=== PATIENT | male | born 1965 | race Caucasian/White ===

== ENCOUNTER 2017-07-16 15:12 | Inpatient (IN) | payer OTHER ==
[2017-07-16 17:35] VITALS: BMI 22.5
--- NOTE | 2017-07-16 19:27 | HP ---
CIWA Score - CIWA Score Nausea/Vomitin-Mild Nausea/No Vomiting Muscle Tremors: 4-Moderate,w/Arms Extend Anxiety: 4-Mod. Anxious/Guarded Agitation: 4-Moderately Restless Paroxysmal Sweats: 1-Minimal Palms Moist Orientation: 0-Oriented Tacttile Disturbances: 0-None Auditory Disturbances: 0-None Visual Disturbances: 0-None Headache: 1-Very Mild CIWA-Ar Total Score: 15 Admission ROS BHS - HPI Chief Complaint: WITHDRAWAL SX Allergies/Adverse Reactions: Allergies Allergy/AdvReac Type Severity Reaction Status Date / Time peas Allergy Severe Swelling Verified 07/16/17 19:13 NKDA Allergy Uncoded 07/16/17 19:13 History of Present Illness: 51 YEARS OLD MALE WITH LONG HISTORY OF ALCOHOL, XANAX, MARIJUANA, COCAINE NICOTINE DEPENDENCE DENIES MEDICAL ISSUE HAS BIPOLAR II IS ADMITTED TO DETOX Exam Limitations: No Limitations - Ebola screening Have you traveled outside of the country in the last 21 days: No Have you had contact with anyone from an Ebola affected area: No Have you been sick,other than usual withdrawal symptoms: No Do you have a fever: No - Review of Systems Constitutional: Loss of Appetite, Changes in sleep, Unintentional Wgt. Loss, Unexplained wgt Loss EENT: reports: Blurred Vision (EYE GLASSES) Respiratory: reports: No Symptoms reported Cardiac: reports: No Symptoms Reported GI: reports: Nausea, Poor Appetite, Poor Fluid Intake, Abdominal cramping : reports: No Symptoms Reported Musculoskeletal: reports: Back Pain, Joint Pain, Muscle Pain, Neck Pain Integumentary: reports: Change in Color (BOTH INNER ELBOW IV HEROIN) Neuro: reports: Tremors Endocrine: reports: No Symptoms Reported Hematology: reports: No Symptoms Reported Psychiatric: reports: Judgement Intact, Orientated x3, Anxious, Depressed Other Systems: Reviewed and Negative Patient History - Patient Medical History Hx Anemia: No Hx Asthma: No Hx Chronic Obstructive Pulmonary Disease (COPD): No Hx Cancer: No Hx Cardiac Disorders: No Hx Congestive Heart Failure: No Hx Hypertension: No Hx Hypercholesterolemia: No Hx Pacemaker: No HX Cerebrovascular Accident: No Hx Seizures: No Hx Dementia: No Hx Diabetes: No Hx Gastrointestinal Disorders: No Hx Liver Disease: No Hx Genitourinary Disorders: No Hx Sexually Transmitted Disorders: No Hx Renal Disease (ESRD): No Hx Thyroid Disease: No Hx Human Immunodeficiency Virus (HIV): No Hx Hepatitis C: Yes Hx Depression: No Hx Suicide Attempt: Yes (OVERDOSE 2013) Hx Bipolar Disorder: Yes Hx Schizophrenia: No - Patient Surgical History Past Surgical History: Yes Hx Neurologic Surgery: No Hx Cataract Extraction: No Hx Cardiac Surgery: No Hx Lung Surgery: No Hx Breast Surgery: No Hx Breast Biopsy: No Hx Abdominal Surgery: No Hx Appendectomy: No Hx Cholecystectomy: No Hx Genitourinary Surgery: No Hx Orthopedic Surgery: No Other Surgical History: LEFT HERNIA 2003 Anesthesia Reaction: No - PPD History Previous Implant?: Yes Documented Results: Negative w/o proof Implanted On Prior [facility] Admission?: No PPD to be Administered?: Yes - Smoking Cessation Smoking history: Current every day smoker Have you smoked in the past 12 months: Yes Aproximately how many cigarettes per day: 3 Cigars Per Day: 0 Hx Chewing Tobacco Use: No Initiated information on smoking cessation: Yes 'Breaking Loose' booklet given: 07/16/17 - Substance & Tx. History Hx Alcohol Use: Yes Hx Substance Use: Yes Substance Use Type: Alcohol, Cocaine, Marijuana, Tranquilizers Hx Substance Use Treatment: Yes (06/2017 [facility]) - Substances Abused Alcohol Route: Oral Frequency: Daily Amount used: 1 1/2 PINT Family Disease History - Family Disease History Family Disease History: Diabetes: Father, CA: Sister, Respiratory: Sister, Other : Father Admission Physical Exam BHS - Vital Signs Vital Signs: Vital Signs - 24 hr 07/16/17 17:31 Temperature 97.1 F L Pulse Rate 59 L Respiratory 20 Rate Blood Pressure 134/89 - Physical General Appearance: Yes: Appropriately Dressed, Mild Distress, Thin, Tremorous, Irritable, Sweating, Anxious HEENTM: Yes: Hearing grossly Normal, Normal ENT Inspection, Normocephalic, Normal Voice Respiratory: Yes: Chest Non-Tender, Lungs Clear, Normal Breath Sounds, No Respiratory Distress, No Accessory Muscle Use Neck: Yes: Supple, Trachea in good position Breast: Yes: Breasts Symetrical Cardiology: Yes: Regular Rhythm, S1, S2, Bradycardia Abdominal: Yes: Non Tender, Soft Genitourinary: Yes: Within Normal Limits Back: Yes: Normal Inspection Musculoskeletal: Yes: full range of Motion, Gait Steady, Back pain, Muscle Pain Extremities: Yes: Normal Inspection, Normal Range of Motion, Non-Tender, Tremors Neurological: Yes: Fully Oriented, Alert, Motor Strength 5/5, Normal Response, Depressed Affect Integumentary: Yes: Warm, Track [place] Lymphatic: Yes: Within Normal Limits - Diagnostic (1) Alcohol dependence with uncomplicated withdrawal Current Visit: Yes Status: Acute (2) Cocaine dependence, uncomplicated Current Visit: Yes Status: Chronic (3) Cannabis dependence, uncomplicated Current Visit: Yes Status: Chronic (4) Methadone maintenance therapy patient Current Visit: Yes Status: Chronic Comment: 160 MG VERIFICAITON PENDING (5) Nicotine dependence Current Visit: Yes Status: Acute Qualifiers: Nicotine product type: cigarettes Substance use status: in withdrawal Qualified Code(s): F17.213 - Nicotine dependence, cigarettes, with withdrawal; F17.213 - Nicotine dependence, cigarettes, with withdrawal (6) Weight loss Current Visit: Yes Status: Acute (7) Hepatitis C Current Visit: Yes Status: Chronic Qualifiers: Viral hepatitis chronicity: chronic Hepatic coma status: without hepatic coma Qualified Code(s): B18.2 - Chronic viral hepatitis C; B18.2 - Chronic viral hepatitis C; B18.2 - Chronic viral hepatitis C; B18.2 - Chronic viral hepatitis C (8) Bipolar II disorder Current Visit: Yes Status: Suspected Cleared for Admission S - Detox or Rehab [facility] Level of Care: Medically Managed Detox Regimen/Protocol: Valium S Breath Alcohol Content Breath Alcohol Content: 0 Urine Drug Screen - Results Drug Screen Negative: No Urine Drug Screen Results: THC-Marijuana, ARMANI-Cocaine, OPI-Opiates, BZO- Benzodiazepines, MTD-Methadone, TCA-Tricyclic Antidepress
[2017-07-16] MEDS ORDERED: MAGNESIUM HYDROX 2400MG/30ML ORAL SUSPENSION 30 ML CUP PO PRN (19:31)
[2017-07-16] MEDS ORDERED: MAG HYDROX/AL HYDROX/SIMETH 30 ML UNIT-DOSE CUP PO PRN (19:31)
[2017-07-16] MEDS ORDERED: ACETAMINOPHEN 325 MG TABLET (FP) PO PRN (19:31)
[2017-07-16] MEDS ORDERED: IBUPROFEN 400 MG TABLET (FP) PO PRN (19:31)
[2017-07-16] MEDS ORDERED: NICOTINE POLACRILEX 2 MG GUM BC PRN (19:31)
[2017-07-16] MEDS ORDERED: P-EPHED 60MG/TRIPROLIDI 2.5MG TABLET PO PRN (19:31)
[2017-07-16] MEDS ORDERED: MAGNESIUM CITRATE 300 ML BOTTLE PO PRN (19:31)
[2017-07-16] MEDS ORDERED: diazePAM 5 MG TABLET PO ONE (19:31)
[2017-07-16] MEDS ORDERED: LOPERAMIDE HCL 2 MG CAPSULE PO PRN (19:31)
[2017-07-16] MEDS ORDERED: diphenhydrAMINE HCL 50 MG CAPSULE PO PRN (19:31)
[2017-07-16] MEDS ORDERED: MENTHOL/PHENOL 1 EACH UD MM PRN (19:31)
[2017-07-16] MEDS ORDERED: guaiFENesin/D-METHORPHAN HB 10 ML UNIT-DOSE CUPS PO PRN (19:31)
[2017-07-16] MEDS: THIAMINE HCL 100 MG TABLET (FP) PO SCH (22:38)
[2017-07-16] MEDS: diazePAM 5 MG TABLET PO SCH (22:42)
[2017-07-16 23:21] LABS: URINE APPEARANCE SLCLOUDY; URINE BILIRUBIN NEGATIVE (NEGATIVE); URINE BLOOD NEGATIVE (NEGATIVE); URINE COLOR YELLOW; URINE GLUCOSE (UA) NEGATIVE (NEGATIVE); URINE KETONE NEGATIVE (NEGATIVE); URINE LEUK ESTERASE TRACE (NEGATIVE); URINE NITRITE NEGATIVE (NEGATIVE); URINE PROTEIN NEGATIVE (NEGATIVE)
[2017-07-16 23:30] LABS: URINE HYALINE CAST 9 /lpf; URINE MUCUS MANY; URINE RBC 6 /hpf (0-3); URINE WBC 4 /hpf (3-5)
[2017-07-17] MEDS: diazePAM 5 MG TABLET PO SCH ×3 (06:04→22:47)
[2017-07-17] MEDS: diazePAM 5 MG TABLET PO PRN ×2 (09:30→17:55)
[2017-07-17 09:43] LABS: MCH 31.8 pg (25.7-33.7); MCHC 33.3 g/dl (32.0-35.9); MEAN CELL VOLUME 95.6 fl (80-96); MEAN PLT VOLUME 9.9 fl (7.5-11.1); PLATELET COUNT 101 K/MM3 (134-434); WHITE BLOOD COUNT 4.7 K/mm3 (4.0-10.0)
--- NOTE | 2017-07-17 09:58 | EKG ---
Test Reason : Blood Pressure : / mmHG Vent. Rate : 051 BPM Atrial Rate : 051 BPM P-R Int : 166 ms QRS Dur : 108 ms QT Int : 498 ms P-R-T Axes : 054 -62 033 degrees QTc Int : 458 ms SINUS BRADYCARDIA INCOMPLETE RIGHT BUNDLE BRANCH BLOCK LEFT ANTERIOR FASCICULAR BLOCK BIFASCICULAR BLOCK ABNORMAL ECG NO PREVIOUS ECGS AVAILABLE Confirmed by CLEMENTINA STORY, MECHELLE ([id number]) on 07/17/2017 9:57:51 AM Referred By: Confirmed By:MECHELLE MCRAE MD
--- NOTE | 2017-07-17 09:58 | EKG ---
Test Reason : Blood Pressure : / mmHG Vent. Rate : 047 BPM Atrial Rate : 047 BPM P-R Int : 164 ms QRS Dur : 104 ms QT Int : 506 ms P-R-T Axes : 047 -54 020 degrees QTc Int : 447 ms SINUS BRADYCARDIA INCOMPLETE RIGHT BUNDLE BRANCH BLOCK LEFT ANTERIOR FASCICULAR BLOCK ABNORMAL ECG WHEN COMPARED WITH ECG OF 16-JUL-2017 22:32, NO SIGNIFICANT CHANGE WAS FOUND Confirmed by MECHELLE MCRAE MD ([id number]) on 07/17/2017 9:58:25 AM Referred By: Confirmed By:MECHELLE MCRAE MD
[2017-07-17 10:29] LABS: ALBUMIN 3.4 g/dl (3.4-5.0); ALK PHOS 97 U/L (45-117); ANION GAP 5 (8-16); BILIRUBIN,TOTAL 1.3 mg/dL (0.2-1.0); CO2 33 mmol/L (21-32); CREATININE 0.7 mg/dL (0.7-1.3); GLUCOSE,RANDOM 76 mg/dL (74-106); SGOT/AST 68 U/L (15-37); SGPT/ALT 79 U/L (12-78); TOT PROT 6.2 g/dl (6.4-8.2)
[2017-07-17] MEDS: PRENATAL VITAMINS W/ FOLIC ACID TABLET (FP) PO SCH (10:40)
[2017-07-17] MEDS: METHADONE HCL 40 MG DISPERSABLE TABLET PO SCH (10:41)
[2017-07-17] MEDS: NICOTINE 14 MG/24 HOURS TOPICAL PATCH TD SCH (10:41)
[2017-07-17 11:42] LABS: HIV 1 & 2 AB NEGATIVE; HIV 1 AGp24 NEGATIVE
--- NOTE | 2017-07-17 12:28 | CONSULT ---
[facility] Psychiatric Consult - Data Date of interview: 07/17/17 Admission source: Self-referred Identifying data: Mr Desean Quintero is a 51 years old male, father of a 32 years old son, unemployed on SSI, domiciled Substance Abuse History: Reports history of alcohol, heroin and cocaine use. consumes 1.5 pint of liquor, 1-2 bags of heroin and $70 worth of cocaine daily Medical History: Significant for Hep C and history of surgery for left inguinal hernia repair. Patient is on methadone 160 mg/day. Smokes 3 cigarettes daily Psychiatric History: Reports being diagnosed with Bipolar/Schizoprenia and has had 3 previous psychiatric admissions. First admission was in 2011 in [place], [place], second in [place] and third one in 2015 in [facility]. Claims that he was discharged on Zoloft, Seroquel and Anbien. Reports receiving OPD care at [facility] in the [place] and he is currently prescribed Zoloft 100 mg po daily, Seroquel 100 mg po HS, Trazadone 50 mg po HS and Ambien 10 mg po HS. Reports history of one suicidal attempt by overdose in 2013. at present, reports feeling depressed, anxious and sleeping poorly Physical/Sexual Abuse/Trauma History: Denies history of verbal, physical or sexual abuse as well as DV relationship. No service Additional Comment: Denies Mental Status Exam - Mental Status Exam Alert and Oriented to: Time, Place, Person Cognitive Function: Fair Patient Appearance: Well Groomed Mood: Depressed, Anxious Affect: Appropriate Speech Pattern: Clear Voice Loudness: Normal Thought Process: Intact, Goal Oriented Insight/Judgement: Poor Sleep: Poorly Appetite: Poor Muscle strength/Tone: Normal Gait/Station: Normal Psychiatric Findings - Problem List ([place] 1, 2,3) (1) Bipolar II disorder Current Visit: Yes Status: Suspected (2) Substance induced mood disorder Current Visit: Yes Status: Acute (3) Substance-induced sleep disorder Current Visit: Yes Status: Acute (4) Alcohol dependence with uncomplicated withdrawal Current Visit: Yes Status: Acute (5) Cocaine dependence, uncomplicated Current Visit: Yes Status: Chronic (6) Sedative hypnotic or anxiolytic dependence Current Visit: Yes Status: Acute (7) Opioid dependence on agonist therapy Current Visit: Yes Status: Acute (8) Nicotine dependence Current Visit: Yes Status: Acute Qualifiers: Nicotine product type: cigarettes Substance use status: in withdrawal Qualified Code(s): F17.213 - Nicotine dependence, cigarettes, with withdrawal; F17.213 - Nicotine dependence, cigarettes, with withdrawal (9) Hepatitis C Current Visit: Yes Status: Chronic Qualifiers: Viral hepatitis chronicity: chronic Hepatic coma status: without hepatic coma Qualified Code(s): B18.2 - Chronic viral hepatitis C; B18.2 - Chronic viral hepatitis C; B18.2 - Chronic viral hepatitis C; B18.2 - Chronic viral hepatitis C - Initial Treatment Plan Initial Treatment Plan: 1) Continue zoloft 100 mg po daily, Seroquel 100 mg po HS and Ambien 10 mg po HS prn for insomnia. 2) Continue inpatient detoxification
--- NOTE | 2017-07-17 12:32 | PN ---
[facility] CIWA - CIWA Score Nausea/Vomitin Muscle Tremors: 4-Moderate,w/Arms Extend Anxiety: 3 Agitation: 1-Slight > Activity Paroxysmal Sweats: 3 Orientation: 0-Oriented Tacttile Disturbances: 1-Very Mild Itch/Numbness Auditory Disturbances: 2-Mild Harshness/Frighten Visual Disturbances: 1-Very Mild Sensitivity Headache: 0-None Present CIWA-Ar Total Score: 17 BHS Progress Note (SOAP) Subjective: Body Aches, Sweating, Tremors, Interrupted Sleep, Diarrhea. Objective: PT. A & O X 3. NO ACUTE DISTRESS. PT. DENIES CHEST PAIN. 07/17/17 12:29 Vital Signs Temperature 97 F L 07/17/17 09:25 Pulse Rate 55 L 07/17/17 09:25 Respiratory Rate 18 07/17/17 09:25 Blood Pressure 127/87 07/17/17 09:25 O2 Sat by Pulse Oximetry (%) Laboratory Tests 07/16/17 07/17/17 07/17/17 23:10 08:00 08:00 WBC 4.7 RBC 3.96 L Hgb 12.6 Hct 37.8 MCV 95.6 MCH 31.8 MCHC 33.3 RDW 13.0 Plt Count 101 L MPV 9.9 Sodium 141 Potassium 4.1 Chloride 103 Carbon Dioxide 33 H Anion Gap 5 L BUN 15 Creatinine 0.7 Creat Clearance w eGFR > 60 Random Glucose 76 Calcium 8.0 L Total Bilirubin 1.3 H AST 68 H ALT 79 H Alkaline Phosphatase 97 Total Protein 6.2 L Albumin 3.4 Urine Color Yellow Urine Appearance Slcloudy Urine pH 5.0 Ur Specific [place] 1.025 Urine Protein Negative Urine Glucose (UA) Negative Urine Ketones Negative Urine Blood Negative Urine Nitrite Negative Urine Bilirubin Negative Urine Urobilinogen 2.0 Urine RBC 6 Urine WBC 4 Ur Epithelial Cells Rare Hyaline Casts 9 Urine Mucus Many RPR Titer HIV 1&2 Antibody Screen HIV P24 Antigen 07/17/17 07/17/17 08:00 08:00 WBC RBC Hgb Hct MCV MCH MCHC RDW Plt Count MPV Sodium Potassium Chloride Carbon Dioxide Anion Gap BUN Creatinine Creat Clearance w eGFR Random Glucose Calcium Total Bilirubin AST ALT Alkaline Phosphatase Total Protein Albumin Urine Color Urine Appearance Urine pH Ur Specific [place] Urine Protein Urine Glucose (UA) Urine Ketones Urine Blood Urine Nitrite Urine Bilirubin Urine Urobilinogen Urine RBC Urine WBC Ur Epithelial Cells Hyaline Casts Urine Mucus RPR Titer Nonreactive HIV 1&2 Antibody Screen Negative HIV P24 Antigen Negative LABS NOTED. Assessment: 07/17/17 12:30 WITHDRAWAL SYMPTOMS. Plan: CONTINUE DETOX. REPEAT UA FOR ELEVATED ADMISSION UA BLOOD VALUE. INCREASE DAILY PO FLUID INTAKE.
[2017-07-17] MEDS: SERTRALINE HCL 50 MG TABLET (FP) PO SCH (14:17)
[2017-07-17] MEDS ORDERED: ZOLPIDEM TARTRATE 10 MG TABLET (PARK CARE ONLY) PO PRN (22:00)
[2017-07-17] MEDS: THIAMINE HCL 100 MG TABLET (FP) PO SCH (22:47)
[2017-07-17] MEDS: QUEtiapine FUMARATE 100 MG TABLET (FP) PO SCH (22:48)
[2017-07-18] MEDS: CYCLOBENZAPRINE HCL 10 MG TABLET (FP) PO PRN (05:53)
[2017-07-18] MEDS: diazePAM 5 MG TABLET PO PRN ×2 (05:53→20:14)
[2017-07-18] MEDS: METHADONE HCL 40 MG DISPERSABLE TABLET PO SCH (05:53)
[2017-07-18] MEDS: PRENATAL VITAMINS W/ FOLIC ACID TABLET (FP) PO SCH (10:57)
[2017-07-18] MEDS: SERTRALINE HCL 50 MG TABLET (FP) PO SCH (10:57)
[2017-07-18] MEDS: diazePAM 5 MG TABLET PO SCH ×2 (10:58→22:48)
[2017-07-18] MEDS: NICOTINE 14 MG/24 HOURS TOPICAL PATCH TD SCH (10:58)
--- NOTE | 2017-07-18 13:34 | PN ---
S CIWA - CIWA Score Nausea/Vomitin Muscle Tremors: 3 Anxiety: 1-Mildly Anxious Agitation: 2 Paroxysmal Sweats: 3 Orientation: 2-Disoriented Date<2 days Tacttile Disturbances: 0-None Auditory Disturbances: 0-None Visual Disturbances: 0-None Headache: 3-Moderate CIWA-Ar Total Score: 19 S Progress Note (SOAP) Subjective: Interrupted sleep, Tremors, diarrhea, Vomiting, H/A, Body Aches, Sweating. Objective: PT. A & O X 2 (DISORIENTED ABOUT DAY / DATE). NO ACUTES DISTRESS. 07/18/17 13:35 Vital Signs Temperature 97.6 F 07/18/17 09:48 Pulse Rate 87 07/18/17 09:48 Respiratory Rate 18 07/18/17 09:48 Blood Pressure 115/71 07/18/17 09:48 O2 Sat by Pulse Oximetry (%) Laboratory Tests 07/16/17 07/17/17 07/17/17 23:10 08:00 08:00 WBC 4.7 RBC 3.96 L Hgb 12.6 Hct 37.8 MCV 95.6 MCH 31.8 MCHC 33.3 RDW 13.0 Plt Count 101 L MPV 9.9 Sodium 141 Potassium 4.1 Chloride 103 Carbon Dioxide 33 H Anion Gap 5 L BUN 15 Creatinine 0.7 Creat Clearance w eGFR > 60 Random Glucose 76 Calcium 8.0 L Total Bilirubin 1.3 H AST 68 H ALT 79 H Alkaline Phosphatase 97 Total Protein 6.2 L Albumin 3.4 Urine Color Yellow Urine Appearance Slcloudy Urine pH 5.0 Ur Specific [place] 1.025 Urine Protein Negative Urine Glucose (UA) Negative Urine Ketones Negative Urine Blood Negative Urine Nitrite Negative Urine Bilirubin Negative Urine Urobilinogen 2.0 Urine RBC 6 Urine WBC 4 Ur Epithelial Cells Rare Hyaline Casts 9 Urine Mucus Many RPR Titer HIV 1&2 Antibody Screen HIV P24 Antigen 07/17/17 07/17/17 08:00 08:00 WBC RBC Hgb Hct MCV MCH MCHC RDW Plt Count MPV Sodium Potassium Chloride Carbon Dioxide Anion Gap BUN Creatinine Creat Clearance w eGFR Random Glucose Calcium Total Bilirubin AST ALT Alkaline Phosphatase Total Protein Albumin Urine Color Urine Appearance Urine pH Ur Specific [place] Urine Protein Urine Glucose (UA) Urine Ketones Urine Blood Urine Nitrite Urine Bilirubin Urine Urobilinogen Urine RBC Urine WBC Ur Epithelial Cells Hyaline Casts Urine Mucus RPR Titer Nonreactive HIV 1&2 Antibody Screen Negative HIV P24 Antigen Negative LABS NOTED. Assessment: 07/18/17 13:36 WITHDRAWAL SYMPTOMS. Plan: CONTINUE DETOX. INCREASE DAILY PO FLUID INTAKE.
[2017-07-18] MEDS: THIAMINE HCL 100 MG TABLET (FP) PO SCH (22:47)
[2017-07-18] MEDS: QUEtiapine FUMARATE 100 MG TABLET (FP) PO SCH (22:48)
[2017-07-19] MEDS: METHADONE HCL 40 MG DISPERSABLE TABLET PO SCH (05:59)
[2017-07-19] MEDS: CYCLOBENZAPRINE HCL 10 MG TABLET (FP) PO PRN (05:59)
[2017-07-19] MEDS: diazePAM 5 MG TABLET PO PRN ×3 (06:00→17:03)
[2017-07-19 10:21] LABS: URINE APPEARANCE CLOUDY; URINE BILIRUBIN NEGATIVE (NEGATIVE); URINE BLOOD NEGATIVE (NEGATIVE); URINE COLOR DKYELLOW; URINE GLUCOSE (UA) NEGATIVE (NEGATIVE); URINE KETONE NEGATIVE (NEGATIVE); URINE LEUK ESTERASE TRACE (NEGATIVE); URINE NITRITE NEGATIVE (NEGATIVE); URINE PROTEIN NEGATIVE (NEGATIVE); URINE UROBILINOGEN 4.0 E.U/dl mg/dL (0.2-1.0)
[2017-07-19] MEDS: PRENATAL VITAMINS W/ FOLIC ACID TABLET (FP) PO SCH (10:37)
[2017-07-19] MEDS: SERTRALINE HCL 50 MG TABLET (FP) PO SCH (10:37)
[2017-07-19] MEDS: diazePAM 5 MG TABLET PO SCH ×2 (10:37→22:38)
[2017-07-19] MEDS: NICOTINE 14 MG/24 HOURS TOPICAL PATCH TD SCH (10:38)
[2017-07-19 10:59] LABS: CALCIUM OXALATE CRYSTALS FEW /hpf (NONE SEEN); URINE HYALINE CAST 6 /lpf; URINE MUCUS FEW; URINE RBC 14 /hpf (0-3); URINE WBC 9 /hpf (3-5)
--- NOTE | 2017-07-19 14:23 | PN ---
BHS Progress Note (SOAP) Subjective: Body Aches, Sweating, H/A, Diarrhea, Tremors, Interrupted Sleep. Objective: PT. A & O X 2 (DISORIENTED ABOUT DAY / DATE). PT. OBSERVED AMBULATING ON UNIT. NO ACUTE DISTRESS. 07/19/17 14:19 Vital Signs Temperature 96.2 F L 07/19/17 13:15 Pulse Rate 67 07/19/17 13:15 Respiratory Rate 18 07/19/17 13:15 Blood Pressure 113/79 07/19/17 13:15 O2 Sat by Pulse Oximetry (%) Laboratory Tests 07/16/17 07/17/17 07/17/17 23:10 08:00 08:00 WBC 4.7 RBC 3.96 L Hgb 12.6 Hct 37.8 MCV 95.6 MCH 31.8 MCHC 33.3 RDW 13.0 Plt Count 101 L MPV 9.9 Sodium 141 Potassium 4.1 Chloride 103 Carbon Dioxide 33 H Anion Gap 5 L BUN 15 Creatinine 0.7 Creat Clearance w eGFR > 60 Random Glucose 76 Calcium 8.0 L Total Bilirubin 1.3 H AST 68 H ALT 79 H Alkaline Phosphatase 97 Total Protein 6.2 L Albumin 3.4 Urine Color Yellow Urine Appearance Slcloudy Urine pH 5.0 Ur Specific [place] 1.025 Urine Protein Negative Urine Glucose (UA) Negative Urine Ketones Negative Urine Blood Negative Urine Nitrite Negative Urine Bilirubin Negative Urine Urobilinogen 2.0 Urine RBC 6 Urine WBC 4 Ur Epithelial Cells Rare Calcium Oxalate Crystal Hyaline Casts 9 Urine Mucus Many RPR Titer HIV 1&2 Antibody Screen HIV P24 Antigen 07/17/17 07/17/17 07/19/17 08:00 08:00 08:00 WBC RBC Hgb Hct MCV MCH MCHC RDW Plt Count MPV Sodium Potassium Chloride Carbon Dioxide Anion Gap BUN Creatinine Creat Clearance w eGFR Random Glucose Calcium Total Bilirubin AST ALT Alkaline Phosphatase Total Protein Albumin Urine Color Dkyellow Urine Appearance Cloudy Urine pH 6.0 Ur Specific [place] Urine Protein Negative Urine Glucose (UA) Negative Urine Ketones Negative Urine Blood Negative Urine Nitrite Negative Urine Bilirubin Negative Urine Urobilinogen 4.0 e.u/dl Urine RBC 14 Urine WBC 9 Ur Epithelial Cells Calcium Oxalate Crystal Few Hyaline Casts 6 Urine Mucus Few RPR Titer Nonreactive HIV 1&2 Antibody Screen Negative HIV P24 Antigen Negative LABS NOTED. RESULTS OF REPEAT UA NOTED. 07/19/17 14:23 Assessment: 07/19/17 14:20 WITHDRAWAL SYMPTOMS. Plan: CONTINUE DETOX. INCREASE DAILY PO FLUID INTAKE.
[2017-07-19] MEDS: QUEtiapine FUMARATE 100 MG TABLET (FP) PO SCH (22:38)
[2017-07-19] MEDS: THIAMINE HCL 100 MG TABLET (FP) PO SCH (22:38)
[2017-07-20] MEDS: CYCLOBENZAPRINE HCL 10 MG TABLET (FP) PO PRN (05:57)
[2017-07-20] MEDS: METHADONE HCL 40 MG DISPERSABLE TABLET PO SCH (05:57)
[2017-07-20 07:05] VITALS: BP 115/86; PULSE 70; TEMP 96
[2017-07-20] MEDS ORDERED: diazePAM 5 MG TABLET PO SCH (10:00)
[2017-07-20] MEDS: SERTRALINE HCL 50 MG TABLET (FP) PO SCH (10:32)
[2017-07-20] MEDS: PRENATAL VITAMINS W/ FOLIC ACID TABLET (FP) PO SCH (10:32)
[2017-07-20] MEDS: NICOTINE 14 MG/24 HOURS TOPICAL PATCH TD SCH (10:32)
--- NOTE | 2017-07-20 13:58 | DS ---
[facility] Detox Discharge Summary Admission Date: 07/16/17 Discharge Date: 07/20/17 - History Present History: Alcohol Dependence, Cannabis Dependence, Cocaine Dependence, Sedative Dependence, MMTP Additional Comments: PATIENT GOING TO [facility] FOR AFTERCARE. PATIENT WAS DISCHARGED FROM DETOX UNIT IN STABLE MEDICAL CONDITION. Pertinent Past History: Hep C, Bipolar Disorder, Nicotine Dependence, MMTP. - Physical Exam Results Vital Signs: Vital Signs Temperature 96 F L 07/20/17 07:04 Pulse Rate 70 07/20/17 07:04 Respiratory Rate 18 07/20/17 07:04 Blood Pressure 115/86 07/20/17 07:04 O2 Sat by Pulse Oximetry (%) Pertinent Admission Physical Exam Findings: WITHDRAWAL SYMPTOMS. Laboratory Tests 07/16/17 07/17/17 07/17/17 23:10 08:00 08:00 WBC 4.7 RBC 3.96 L Hgb 12.6 Hct 37.8 MCV 95.6 MCH 31.8 MCHC 33.3 RDW 13.0 Plt Count 101 L MPV 9.9 Sodium 141 Potassium 4.1 Chloride 103 Carbon Dioxide 33 H Anion Gap 5 L BUN 15 Creatinine 0.7 Creat Clearance w eGFR > 60 Random Glucose 76 Calcium 8.0 L Total Bilirubin 1.3 H AST 68 H ALT 79 H Alkaline Phosphatase 97 Total Protein 6.2 L Albumin 3.4 Urine Color Yellow Urine Appearance Slcloudy Urine pH 5.0 Ur Specific [place] 1.025 Urine Protein Negative Urine Glucose (UA) Negative Urine Ketones Negative Urine Blood Negative Urine Nitrite Negative Urine Bilirubin Negative Urine Urobilinogen 2.0 Ur Leukocyte Esterase Urine RBC 6 Urine WBC 4 Ur Epithelial Cells Rare Calcium Oxalate Crystal Hyaline Casts 9 Urine Mucus Many RPR Titer HIV 1&2 Antibody Screen HIV P24 Antigen 07/17/17 07/17/17 07/19/17 08:00 08:00 08:00 WBC RBC Hgb Hct MCV MCH MCHC RDW Plt Count MPV Sodium Potassium Chloride Carbon Dioxide Anion Gap BUN Creatinine Creat Clearance w eGFR Random Glucose Calcium Total Bilirubin AST ALT Alkaline Phosphatase Total Protein Albumin Urine Color Dkyellow Urine Appearance Cloudy Urine pH 6.0 Ur Specific [place] 1.025 Urine Protein Negative Urine Glucose (UA) Negative Urine Ketones Negative Urine Blood Negative Urine Nitrite Negative Urine Bilirubin Negative Urine Urobilinogen 4.0 e.u/dl Ur Leukocyte Esterase Trace Urine RBC 14 Urine WBC 9 Ur Epithelial Cells Calcium Oxalate Crystal Few Hyaline Casts 6 Urine Mucus Few RPR Titer Nonreactive HIV 1&2 Antibody Screen Negative HIV P24 Antigen Negative LABS NOTED. - Treatment Hospital Course: Detox Protocol Followed, Detoxed Safely, Responded well, Discharged Condition Good, Rehab Referral Accepted Patient has Accepted a Rehab Referral to: [facility]. - Medication Discharge Medications: Ambulatory Orders Sertraline HCl [Zoloft -] 100 mg PO DAILY 07/16/17 Quetiapine Fumarate [Seroquel] 100 mg PO HS #30 tablet 07/17/17 Sertraline HCl [Zoloft] 100 mg PO DAILY #30 tablet 07/17/17 - Diagnosis (1) Alcohol dependence with uncomplicated withdrawal Status: Acute (2) Nicotine dependence Status: Chronic Qualifiers: Nicotine product type: cigarettes Substance use status: in withdrawal Qualified Code(s): F17.213 - Nicotine dependence, cigarettes, with withdrawal; F17.213 - Nicotine dependence, cigarettes, with withdrawal (3) Opioid dependence on agonist therapy Status: Chronic (4) Sedative hypnotic or anxiolytic dependence Status: Acute (5) Substance induced mood disorder Status: Acute (6) Substance-induced sleep disorder Status: Acute (7) Weight loss Status: Acute (8) Cannabis dependence, uncomplicated Status: Chronic (9) Cocaine dependence, uncomplicated Status: Chronic (10) Hepatitis C Status: Chronic Qualifiers: Viral hepatitis chronicity: chronic Hepatic coma status: without hepatic coma Qualified Code(s): B18.2 - Chronic viral hepatitis C; B18.2 - Chronic viral hepatitis C; B18.2 - Chronic viral hepatitis C; B18.2 - Chronic viral hepatitis C (11) Methadone maintenance therapy patient Status: Chronic (12) Bipolar II disorder Status: Suspected - AMA Did Patient Leave Against Medical Advice: No
== END 2017-07-20 13:07 | disposition other institution (70) | DRG 773 ==
LOC: YASAS 15:12 → Y3N 21:25
PROVIDERS: ADMIT Internal Medicine; ATTEND Internal Medicine
PROC: HZ2ZZZZ Detoxification Services for Substance Abuse Treatment (ICD-10-PCS; principal; 2017-07-16)
DX: F10.230 Alcohol dependence with withdrawal, uncomplicated (principal); F11.20 Opioid dependence, uncomplicated; F13.20 Sedative, hypnotic or anxiolytic dependence, uncomplicated; F14.20 Cocaine dependence, uncomplicated; F12.20 Cannabis dependence, uncomplicated; F17.213 Nicotine dependence, cigarettes, with withdrawal; F31.81 Bipolar II disorder; F19.24 Other psychoactive substance dependence with psychoactive substance-induced mood disorder; F19.282 Other psychoactive substance dependence with psychoactive substance-induced sleep disorder; B18.2 Chronic viral hepatitis C; Z91.018 Allergy to other foods; Z91.5 Personal history of self-harm; Z87.898 Personal history of other specified conditions
CPT/HCPCS: 36415; 80053; 81003; 81015; 85027; 86593; 87086; 87389; 93005; 93010

== ENCOUNTER 2017-07-20 14:19 | Inpatient (IN) | payer OTHER ==
--- NOTE | 2017-07-20 13:48 | HP ---
LUCIANA STORY Rehab Assess/Revision - Admission History Ad[facility] Rehab [facility] Date of Admission to Rehab: 07/20/2017. - Vital signs Vital Signs: NOTED; STABLE. - Findings Detox History & Physical reviewed: Yes Concur with findings: Yes Comments/Additional Findings: PATIENT'S MEDICAL / MEDICATION HISTORY REVIEWED PRIOR TO DISCHARGE FROM DETOX UNIT. PATIENT WAS DISCHARGED FROM DETOX UNIT IN STABLE MEDICAL CONDITION TO BE TAKEN TO REHAB UNIT. Inpatient Rehab Admission - Initial Determination Are CD services needed?: Yes Free of communicable disease: Yes Not in need of hospitalization: Yes - Rehab Admission Criteria Previous failed treatment: Yes Comorbidities: Yes Patient is meeting Inpatient Rehab admission criteria:: Yes
[2017-07-20] MEDS ORDERED: guaiFENesin/D-METHORPHAN HB 10 ML UNIT-DOSE CUPS PO PRN (15:12)
[2017-07-20] MEDS ORDERED: MAGNESIUM CITRATE 300 ML BOTTLE PO PRN (15:12)
[2017-07-20] MEDS ORDERED: MENTHOL/PHENOL 1 EACH UD MM PRN (15:12)
[2017-07-20] MEDS ORDERED: P-EPHED 60MG/TRIPROLIDI 2.5MG TABLET PO PRN (15:12)
[2017-07-20] MEDS ORDERED: ACETAMINOPHEN 325 MG TABLET (FP) PO PRN (15:12)
[2017-07-20] MEDS ORDERED: NICOTINE POLACRILEX 2 MG GUM BUC PRN (15:12)
[2017-07-20] MEDS ORDERED: MAGNESIUM HYDROX 2400MG/30ML ORAL SUSPENSION 30 ML CUP PO PRN (15:12)
[2017-07-20] MEDS ORDERED: MAG HYDROX/AL HYDROX/SIMETH 30 ML UNIT-DOSE CUP PO PRN (15:12)
[2017-07-20] MEDS ORDERED: LOPERAMIDE HCL 2 MG CAPSULE PO PRN (15:12)
--- NOTE | 2017-07-20 15:12 | HP ---
LUCIANA STORY Rehab Assess/Revision - Admission History Admitted to Rehab from: [facility] [place] Date of Admission to Rehab: 07/20/17
[2017-07-20] MEDS: THIAMINE HCL 100 MG TABLET (FP) PO SCH (21:20)
[2017-07-20] MEDS: QUEtiapine FUMARATE 100 MG TABLET (FP) PO SCH (21:20)
[2017-07-20] MEDS ORDERED: SUVOREXANT 10 MG TABLET PO PRN (22:00)
[2017-07-21] MEDS ORDERED: METHADONE HCL 10 MG TABLET PO SCH (06:00)
[2017-07-21] MEDS: METHADONE HCL 40 MG DISPERSABLE TABLET PO SCH (06:16)
[2017-07-21] MEDS: PRENATAL VITAMINS W/ FOLIC ACID TABLET (FP) PO SCH (09:58)
[2017-07-21] MEDS: SERTRALINE HCL 50 MG TABLET (FP) PO SCH (09:58)
[2017-07-21] MEDS: NICOTINE 14 MG/24 HOURS TOPICAL PATCH TD SCH (09:58)
[2017-07-21] MEDS: THIAMINE HCL 100 MG TABLET (FP) PO SCH (21:00)
[2017-07-21] MEDS: QUEtiapine FUMARATE 100 MG TABLET (FP) PO SCH (21:00)
[2017-07-22] MEDS: METHADONE HCL 40 MG DISPERSABLE TABLET PO SCH (06:30)
[2017-07-22] MEDS ORDERED: SUVOREXANT 10 MG TABLET PO PRN (07:57)
[2017-07-22] MEDS: PRENATAL VITAMINS W/ FOLIC ACID TABLET (FP) PO SCH (10:02)
[2017-07-22] MEDS: NICOTINE 14 MG/24 HOURS TOPICAL PATCH TD SCH (10:02)
[2017-07-22] MEDS: SERTRALINE HCL 50 MG TABLET (FP) PO SCH (10:02)
[2017-07-22] MEDS: hydrOXYzine PAMOATE 50 MG CAPSULE (FP) PO PRN (10:03)
[2017-07-22] MEDS: diphenhydrAMINE HCL 50 MG CAPSULE PO PRN (21:05)
[2017-07-22] MEDS: THIAMINE HCL 100 MG TABLET (FP) PO SCH (21:05)
[2017-07-22] MEDS: QUEtiapine FUMARATE 100 MG TABLET (FP) PO SCH (21:05)
[2017-07-22] MEDS: IBUPROFEN 400 MG TABLET (FP) PO PRN (21:06)
[2017-07-23] MEDS: METHADONE HCL 40 MG DISPERSABLE TABLET PO SCH (06:33)
--- NOTE | 2017-07-23 06:44 | HP ---
Psychiatrist Admission - Data Date of interview: 07/23/17 Admission source: 3N Identifying data: This is the first [facility] admission for this 51 years old male, father of a 32 years old son, unemployed on SSI, homeless Medical History: Significant for Hep C and history of surgery for left inguinal hernia repair. Patient is on methadone 160 mg/day. Smokes 3 cigartettes daily Psychiatric History: Reports being diagnosed with Bipolar/Schizoprenia and has had 2 previous psychiatric admissions. First admission was [place] and second one in [place], [place]. Claims that he was discharged on Zoloft, Seroquel and Ambien. Reports receiving OPD care at [facility] in the [place] and he is currently prescribed Zoloft 100 mg po daily, Seroquel 100 mg po HS, Trazadone 50 mg po HS and Ambien 10 mg po HS. Reports history of one suicidal attempt by overdose in 2013. at present, reports feeling depressed, anxious and sleeping poorly Physical/Sexual Abuse/Trauma History: Denies history of verbal, physical or sexual abuse as well as DV relationship. No service Additional Comment: Denies criminal history Vital Signs: Vital Signs - 24 hr 07/23/17 07/23/17 00:30 03:30 Respiratory 16 16 Rate Allergies/Adverse Reactions: Allergies Allergy/AdvReac Type Severity Reaction Status Date / Time peas Allergy Severe Swelling Verified 07/16/17 19:13 turkey Allergy Severe Hives Verified 07/16/17 19:38 NKDA Allergy Uncoded 07/16/17 19:13 Date of last physical exam: 07/16/17 Concur with the findings of this exam: Yes - Substance Abuse/Tx History Hx Alcohol Use: Yes Hx Substance Use: Yes Substance Use Type: Alcohol (Started drinking alcohol at age 10, consumes 1.5 pint of Bacardi daily. Last drank on 07/13/17), Cocaine (Started using cocaine at age 15, consumes $70-300 worth daily. Last used on 07/12/17), Heroin (Started using heroin at age 16, consumes 1-2 bags daily. Last used on 07/15/17), Tranquilizers (Started using xanax at age 20, consumes 4-6 mg daily. Last used on 07/16/17) Hx Substance Use Treatment: Yes (Attends [facility]; 4 previous inpt detox. First inpt rehab) Mental Status Exam - Mental Status Exam Alert and Oriented to: Time, Place, Person Cognitive Function: Fair Patient Appearance: Well Groomed Mood: Depressed Affect: Normal Range Patient Behavior: Cooperative Speech Pattern: Clear Voice Loudness: Normal Thought Process: Intact, Goal Oriented Thought Disorder: Not Present Hallucinations: Denies Suicidal Ideation: Denies Homicidal Ideation: Denies Insight/Judgement: Fair Sleep: Poorly Appetite: Poor Muscle strength/Tone: Normal Gait/Station: Normal Psychiatric Findings - Problem List ([place] 1, 2,3) (1) Alcohol dependence Current Visit: Yes Status: Acute (2) Cocaine dependence Current Visit: Yes Status: Acute (3) Sedative hypnotic or anxiolytic dependence Current Visit: No Status: Acute (4) Opioid dependence on agonist therapy Current Visit: No Status: Chronic (5) Nicotine dependence Current Visit: No Status: Chronic Qualifiers: Nicotine product type: cigarettes Substance use status: in withdrawal Qualified Code(s): F17.213 - Nicotine dependence, cigarettes, with withdrawal; F17.213 - Nicotine dependence, cigarettes, with withdrawal (6) Schizoaffective disorder Current Visit: Yes Status: Acute (7) Bipolar II disorder Current Visit: No Status: Ruled-out (8) Substance induced mood disorder Current Visit: No Status: Ruled-out (9) Hepatitis C Current Visit: No Status: Chronic Qualifiers: Viral hepatitis chronicity: chronic Hepatic coma status: without hepatic coma Qualified Code(s): B18.2 - Chronic viral hepatitis C; B18.2 - Chronic viral hepatitis C; B18.2 - Chronic viral hepatitis C; B18.2 - Chronic viral hepatitis C - Initial Treatment Plan Initial Treatment Plan: 1) Continue Zoloft 100 mg po daily and Seroquel 100 mg po HS. 2) Start Belsomra 10 mg po HS prn for insomnia. 3) Monitor progress
[2017-07-23] MEDS: PRENATAL VITAMINS W/ FOLIC ACID TABLET (FP) PO SCH (10:13)
[2017-07-23] MEDS: SERTRALINE HCL 50 MG TABLET (FP) PO SCH (10:13)
[2017-07-23] MEDS: NICOTINE 14 MG/24 HOURS TOPICAL PATCH TD SCH (10:14)
[2017-07-23] MEDS: THIAMINE HCL 100 MG TABLET (FP) PO SCH (20:59)
[2017-07-23] MEDS: QUEtiapine FUMARATE 100 MG TABLET (FP) PO SCH (20:59)
[2017-07-23] MEDS: IBUPROFEN 400 MG TABLET (FP) PO PRN (21:01)
[2017-07-23] MEDS: hydrOXYzine PAMOATE 50 MG CAPSULE (FP) PO PRN (21:01)
[2017-07-24] MEDS: METHADONE HCL 40 MG DISPERSABLE TABLET PO SCH (06:12)
[2017-07-24] MEDS: SERTRALINE HCL 50 MG TABLET (FP) PO SCH (09:38)
[2017-07-24] MEDS: NICOTINE 14 MG/24 HOURS TOPICAL PATCH TD SCH (09:38)
[2017-07-24] MEDS: PRENATAL VITAMINS W/ FOLIC ACID TABLET (FP) PO SCH (09:38)
[2017-07-24] MEDS: hydrOXYzine PAMOATE 50 MG CAPSULE (FP) PO PRN (15:01)
[2017-07-24] MEDS: THIAMINE HCL 100 MG TABLET (FP) PO SCH (21:12)
[2017-07-24] MEDS: QUEtiapine FUMARATE 100 MG TABLET (FP) PO SCH (21:12)
[2017-07-24] MEDS: diphenhydrAMINE HCL 50 MG CAPSULE PO PRN (21:13)
[2017-07-25] MEDS: METHADONE HCL 40 MG DISPERSABLE TABLET PO SCH (06:07)
[2017-07-25] MEDS: PRENATAL VITAMINS W/ FOLIC ACID TABLET (FP) PO SCH (10:03)
[2017-07-25] MEDS: NICOTINE 14 MG/24 HOURS TOPICAL PATCH TD SCH (10:03)
[2017-07-25] MEDS: SERTRALINE HCL 50 MG TABLET (FP) PO SCH (10:03)
[2017-07-25] MEDS: hydrOXYzine PAMOATE 50 MG CAPSULE (FP) PO PRN (10:04)
[2017-07-25] MEDS: QUEtiapine FUMARATE 100 MG TABLET (FP) PO SCH (21:11)
[2017-07-25] MEDS: THIAMINE HCL 100 MG TABLET (FP) PO SCH (21:11)
[2017-07-25] MEDS: diphenhydrAMINE HCL 50 MG CAPSULE PO PRN (21:11)
[2017-07-26] MEDS: METHADONE HCL 40 MG DISPERSABLE TABLET PO SCH (06:26)
[2017-07-26] MEDS: hydrOXYzine PAMOATE 50 MG CAPSULE (FP) PO PRN ×2 (10:14→21:04)
[2017-07-26] MEDS: PRENATAL VITAMINS W/ FOLIC ACID TABLET (FP) PO SCH (10:14)
[2017-07-26] MEDS: SERTRALINE HCL 50 MG TABLET (FP) PO SCH (10:14)
[2017-07-26] MEDS: NICOTINE 14 MG/24 HOURS TOPICAL PATCH TD SCH (10:24)
[2017-07-26] MEDS: THIAMINE HCL 100 MG TABLET (FP) PO SCH (21:03)
[2017-07-26] MEDS: QUEtiapine FUMARATE 100 MG TABLET (FP) PO SCH (21:04)
[2017-07-27] MEDS: METHADONE HCL 40 MG DISPERSABLE TABLET PO SCH (06:27)
[2017-07-27] MEDS: SERTRALINE HCL 50 MG TABLET (FP) PO SCH (10:03)
[2017-07-27] MEDS: PRENATAL VITAMINS W/ FOLIC ACID TABLET (FP) PO SCH (10:03)
[2017-07-27] MEDS: hydrOXYzine PAMOATE 50 MG CAPSULE (FP) PO PRN (10:04)
[2017-07-27] MEDS: NICOTINE 14 MG/24 HOURS TOPICAL PATCH TD SCH (10:05)
[2017-07-27] MEDS: diphenhydrAMINE HCL 50 MG CAPSULE PO PRN (21:06)
[2017-07-27] MEDS: QUEtiapine FUMARATE 100 MG TABLET (FP) PO SCH (21:06)
[2017-07-27] MEDS: THIAMINE HCL 100 MG TABLET (FP) PO SCH (21:06)
[2017-07-28] MEDS: METHADONE HCL 40 MG DISPERSABLE TABLET PO SCH (06:35)
[2017-07-28] MEDS: SERTRALINE HCL 50 MG TABLET (FP) PO SCH (09:53)
[2017-07-28] MEDS: hydrOXYzine PAMOATE 50 MG CAPSULE (FP) PO PRN ×2 (09:53→14:09)
[2017-07-28] MEDS: PRENATAL VITAMINS W/ FOLIC ACID TABLET (FP) PO SCH (09:54)
[2017-07-28] MEDS: NICOTINE 14 MG/24 HOURS TOPICAL PATCH TD SCH (09:54)
[2017-07-28] MEDS: THIAMINE HCL 100 MG TABLET (FP) PO SCH (21:13)
[2017-07-28] MEDS: diphenhydrAMINE HCL 50 MG CAPSULE PO PRN (21:13)
[2017-07-28] MEDS: QUEtiapine FUMARATE 100 MG TABLET (FP) PO SCH (21:13)
[2017-07-29] MEDS: METHADONE HCL 40 MG DISPERSABLE TABLET PO SCH (06:17)
[2017-07-29] MEDS: PRENATAL VITAMINS W/ FOLIC ACID TABLET (FP) PO SCH (10:01)
[2017-07-29] MEDS: SERTRALINE HCL 50 MG TABLET (FP) PO SCH (10:01)
[2017-07-29] MEDS: NICOTINE 14 MG/24 HOURS TOPICAL PATCH TD SCH (10:02)
[2017-07-29] MEDS: hydrOXYzine PAMOATE 50 MG CAPSULE (FP) PO PRN (10:02)
[2017-07-29] MEDS: diphenhydrAMINE HCL 50 MG CAPSULE PO PRN (21:03)
[2017-07-29] MEDS: THIAMINE HCL 100 MG TABLET (FP) PO SCH (21:03)
[2017-07-29] MEDS: QUEtiapine FUMARATE 100 MG TABLET (FP) PO SCH (21:03)
[2017-07-30] MEDS: METHADONE HCL 40 MG DISPERSABLE TABLET PO SCH (06:17)
[2017-07-30] MEDS: SERTRALINE HCL 50 MG TABLET (FP) PO SCH (09:57)
[2017-07-30] MEDS: PRENATAL VITAMINS W/ FOLIC ACID TABLET (FP) PO SCH (09:57)
[2017-07-30] MEDS: hydrOXYzine PAMOATE 50 MG CAPSULE (FP) PO PRN (09:58)
[2017-07-30] MEDS: NICOTINE 14 MG/24 HOURS TOPICAL PATCH TD SCH (09:58)
[2017-07-30] MEDS: THIAMINE HCL 100 MG TABLET (FP) PO SCH (21:08)
[2017-07-30] MEDS: QUEtiapine FUMARATE 100 MG TABLET (FP) PO SCH (21:08)
[2017-07-30] MEDS: diphenhydrAMINE HCL 50 MG CAPSULE PO PRN (21:08)
[2017-07-31] MEDS: METHADONE HCL 40 MG DISPERSABLE TABLET PO SCH (06:09)
[2017-07-31] MEDS: PRENATAL VITAMINS W/ FOLIC ACID TABLET (FP) PO SCH (10:16)
[2017-07-31] MEDS: SERTRALINE HCL 50 MG TABLET (FP) PO SCH (10:17)
[2017-07-31] MEDS: NICOTINE 14 MG/24 HOURS TOPICAL PATCH TD SCH (10:17)
[2017-07-31] MEDS: IBUPROFEN 400 MG TABLET (FP) PO PRN (17:10)
[2017-07-31] MEDS: hydrOXYzine PAMOATE 50 MG CAPSULE (FP) PO PRN ×2 (17:10→21:13)
[2017-07-31] MEDS: QUEtiapine FUMARATE 100 MG TABLET (FP) PO SCH (21:12)
[2017-07-31] MEDS: THIAMINE HCL 100 MG TABLET (FP) PO SCH (21:12)
[2017-08-01] MEDS: METHADONE HCL 40 MG DISPERSABLE TABLET PO SCH (06:28)
[2017-08-01] MEDS: PRENATAL VITAMINS W/ FOLIC ACID TABLET (FP) PO SCH (10:22)
[2017-08-01] MEDS: SERTRALINE HCL 50 MG TABLET (FP) PO SCH (10:22)
[2017-08-01] MEDS: NICOTINE 14 MG/24 HOURS TOPICAL PATCH TD SCH (10:22)
[2017-08-01] MEDS: hydrOXYzine PAMOATE 50 MG CAPSULE (FP) PO PRN (10:23)
[2017-08-01] MEDS: THIAMINE HCL 100 MG TABLET (FP) PO SCH (21:15)
[2017-08-01] MEDS: diphenhydrAMINE HCL 50 MG CAPSULE PO PRN (21:15)
[2017-08-01] MEDS: QUEtiapine FUMARATE 100 MG TABLET (FP) PO SCH (21:15)
[2017-08-02] MEDS: METHADONE HCL 40 MG DISPERSABLE TABLET PO SCH (06:20)
[2017-08-02 06:52] VITALS: TEMP 97.6
[2017-08-02] MEDS: PRENATAL VITAMINS W/ FOLIC ACID TABLET (FP) PO SCH (10:16)
[2017-08-02] MEDS: NICOTINE 14 MG/24 HOURS TOPICAL PATCH TD SCH (10:16)
[2017-08-02] MEDS: SERTRALINE HCL 50 MG TABLET (FP) PO SCH (10:16)
--- NOTE | 2017-08-02 14:10 | PN ---
Psychiatric Progress Note Vital Signs: Vital Signs Period Temp Pulse Resp BP Sys/Coulter Pulse Ox Last 24 Hr 97.6 F 84 17-18 149/103 Date of Session: 08/02/17 Chief Complaint:: Discharge Note HPI: Patient addressing Alcohol, Cocaine and Sedative Dependence comorbid with Opoid Dependence on Agonist Therapy, Nicotine Dependence and Schizoaffective Disorder ROS: Hep C Current Medications: Active Medications Generic Name Dose Route Start Last Admin Trade Name Freq PRN Reason Stop Dose Admin Acetaminophen 650 mg 07/20/17 15:12 Tylenol - PO Q4H PRN FEVER OR PAIN Al Hydroxide/Mg Hydroxide 30 ml 07/20/17 15:12 Mylanta Oral Suspension - PO Q6H PRN DYSPEPSIA Diphenhydramine HCl 50 mg 07/20/17 22:00 08/01/17 21:15 Benadryl - PO 50 mg HSMR1 PRN Administration FOR ITCHING Eucalyptus/Menthol/Phenol/Sorbitol 1 each 07/20/17 15:12 Cepastat Lozenge - MM Q4H PRN SORE THROAT Guaifenesin 10 ml 07/20/17 15:12 Robitussin Dm - PO Q6H PRN COUGH Hydroxyzine Pamoate 50 mg 07/20/17 15:12 08/01/17 10:23 Vistaril - PO 50 mg Q4H PRN Administration AGITATION Ibuprofen 400 mg 07/20/17 15:12 07/31/17 17:10 Motrin - PO 400 mg Q6H PRN Administration PAIN Loperamide HCl 4 mg 07/20/17 15:12 Imodium - PO Q6H PRN DIARRHEA Magnesium Hydroxide 30 ml 07/20/17 15:12 Milk Of Magnesia - PO DAILY PRN CONSTIPATION Methadone HCl 160 mg 08/03/17 06:00 Dolophine - PO 08/09/17 05:59 DAILY@0600 JAMIL Nicotine 14 mg 07/21/17 10:00 08/02/17 10:16 Nicoderm Patch - TD Not Given DAILY JAMIL Nicotine Polacrilex 2 mg 07/20/17 15:12 Nicorette Gum - BUC Q2H PRN NICOTINE REPLACEMENT RX Multivit/Folic Acid/Iron 1 tab 07/21/17 10:00 08/02/17 10:16 Vitamins (Sjr) - PO 1 tab DAILY JAMIL Administration Pseudoephedrine/Triprolidine 1 combo 07/20/17 15:12 Actifed - PO TID PRN NASAL CONGESTION Quetiapine Fumarate 100 mg 07/20/17 22:00 08/01/17 21:15 Seroquel - PO 100 mg HS JAMIL Administration Sertraline HCl 100 mg 07/21/17 10:00 08/02/17 10:16 Zoloft - PO 100 mg DAILY JAMIL Administration Thiamine HCl 100 mg 07/20/17 22:00 08/01/17 21:15 Vitamin B1 - PO 100 mg HS JAMIL Administration Current Side Effect: No Lab tests ordered: Yes Lab tests reviewed: Yes Provider note:: Patient will complete this program on 08/03/17. He has met his treatment goals and will continue to address his issues in outpatient treatment at [facility]. 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 He responded well to Zoloft 100 mg po daily and Seroquel 100 mg po HS. Scripts for 30 days supply of medications will be electronically transmitted to [facility]. He is stable for discharge on 08/03/17 Total face to face time:: 35 Mental Status Exam - Mental Status Exam Alert and Oriented to: Time, Place, Person Cognitive Function: Fair Patient Appearance: Well Groomed Mood: Hopeful, Euthymic Affect: Appropriate Patient Behavior: Cooperative Speech Pattern: Clear Voice Loudness: Normal Thought Process: Intact, Goal Oriented Thought Disorder: Not Present Hallucinations: Denies Suicidal Ideation: Denies Homicidal Ideation: Denies Insight/Judgement: Fair Sleep: Fair Appetite: Good Muscle strength/Tone: Normal Gait/Station: Normal Psychiatric Treatment Plan - Problem List (1) Alcohol dependence Current Visit: Yes (2) Cocaine dependence Current Visit: Yes (3) Sedative hypnotic or anxiolytic dependence Current Visit: No (4) Opioid dependence on agonist therapy Current Visit: No (5) Nicotine dependence Current Visit: No Qualifiers: Nicotine product type: cigarettes Substance use status: in withdrawal Qualified Code(s): F17.213 - Nicotine dependence, cigarettes, with withdrawal; F17.213 - Nicotine dependence, cigarettes, with withdrawal (6) Schizoaffective disorder Current Visit: Yes (7) Bipolar II disorder Current Visit: No (8) Substance induced mood disorder Current Visit: No (9) Hepatitis C Current Visit: No Qualifiers: Viral hepatitis chronicity: chronic Hepatic coma status: without hepatic coma Qualified Code(s): B18.2 - Chronic viral hepatitis C; B18.2 - Chronic viral hepatitis C; B18.2 - Chronic viral hepatitis C; B18.2 - Chronic viral hepatitis C Initial treatment plan: Patient is discharged tomorrow and referred back to [facility] for outpatient treatment
[2017-08-02] MEDS: THIAMINE HCL 100 MG TABLET (FP) PO SCH (21:28)
[2017-08-02] MEDS: QUEtiapine FUMARATE 100 MG TABLET (FP) PO SCH (21:28)
[2017-08-02] MEDS ORDERED: SUVOREXANT 10 MG TABLET PO PRN (22:00)
[2017-08-03] MEDS ORDERED: METHADONE HCL 40 MG DISPERSABLE TABLET PO SCH (06:00)
[2017-08-03] MEDS: hydrOXYzine PAMOATE 50 MG CAPSULE (FP) PO PRN (06:08)
[2017-08-03 07:21] VITALS: BP 131/92; PULSE 92
== END 2017-08-03 08:25 | disposition home or self-care (01) | DRG 772 ==
LOC: YASAS 14:19 → Y3W 14:20
PROVIDERS: ADMIT Psychiatry & Neurology Psychiatry; ATTEND Psychiatry & Neurology Psychiatry
PROC: HZ42ZZZ Group Counseling for Substance Abuse Treatment, Cognitive-Behavioral (ICD-10-PCS; principal; 2017-07-20)
DX: F11.20 Opioid dependence, uncomplicated (principal); F13.20 Sedative, hypnotic or anxiolytic dependence, uncomplicated; F10.20 Alcohol dependence, uncomplicated; F14.20 Cocaine dependence, uncomplicated; F25.9 Schizoaffective disorder, unspecified; F31.81 Bipolar II disorder; F19.24 Other psychoactive substance dependence with psychoactive substance-induced mood disorder; B18.2 Chronic viral hepatitis C

== ENCOUNTER 2018-08-26 15:35 | Inpatient (IN) | payer OTHER ==
[2018-08-26 16:04] VITALS: BMI 20.9
--- NOTE | 2018-08-26 17:55 | HP ---
CIWA Score Nausea/Vomitin-Mild Nausea/No Vomiting Muscle Tremors: 4-Moderate,w/Arms Extend Anxiety: 0-No Anxiety, at Ease Agitation: 4-Moderately Restless Paroxysmal Sweats: No Perspiration Orientation: 0-Oriented Tacttile Disturbances: 0-None Auditory Disturbances: 0-None Visual Disturbances: 2-Mild Sensitivity Headache: 3-Moderate CIWA-Ar Total Score: 14 - Admission Criteria OASAS Guidelines: Admission for Medically Managed Detox: Requires at least one of the followin. CIWA greater than 12 2. Seizures within the past 24 hours 3. Delirium tremens within the past 24 hours 4. Hallucinations within the past 24 hours 5. Acute intervention needed for co occurring medical disorder 6. Acute intervention needed for co occurring psychiatric disorder 7. Severe withdrawal that cannot be handled at a lower level of care (continued vomiting, continued diarrhea, abnormal vital signs) requiring intravenous medication and/or fluids 8. Admission ROS S - HPI Allergies/Adverse Reactions: Allergies Allergy/AdvReac Type Severity Reaction Status Date / Time peas Allergy Severe Swelling Verified 08/26/18 16:47 turkey Allergy Severe Hives Verified 08/26/18 16:47 NKDA Allergy Uncoded 08/26/18 16:47 History of Present Illness: pt here requesting detox from etoh use , reports 2-3 x 6-pk /day , relapses after 1 week of sobriety due to tremors, + h/o seizures withdrawal from etoh , most recently 2years ago , not on meds , + blackouts , + falls denies sinjuries to self or others , denies driving . Latest use this a.m. Evin 0.015 benzo : 2-4 /day klonopin illicitly pmhx : denies pshx : denies Psych : SAD, paranoia, panic attacks , denies AH / VH at this time , denies current SI / HI , past suicide attempt 7 mo ago by overdose " whatever I can get" meds : zoloft , seroquel - sometimes, Ambien - sometimes on MMTP x 3 years , current daily dose 180 mg Eric Hansen ( Migdalia ) tobacco : 2-3 cigs/day lives alone on SSD 2/2 mental health issues x 5 years Exam Limitations: No Limitations - Ebola screening Have you traveled outside of the country in the last 21 days: No Have you had contact with anyone from an Ebola affected area: No Have you been sick,other than usual withdrawal symptoms: No - Review of Systems Constitutional: See HPI, Unintentional Wgt. Loss (lost 35 lbs in 1 month " just drinking, not eating"), Other (fatigue, anxiety , restlessness) EENT: reports: Other (myopia) Respiratory: reports: No Symptoms reported Cardiac: reports: No Symptoms Reported GI: reports: No Symptoms Reported : reports: No Symptoms Reported Musculoskeletal: reports: Back Pain, Muscle Pain Integumentary: reports: No Symptoms Reported Neuro: reports: Headache, Seizure, Tremors Endocrine: reports: No Symptoms Reported Psychiatric: reports: Judgement Intact, Orientated x3, Agitated, Anxious Patient History - Patient Medical History Hx Anemia: No Hx Asthma: No Hx Chronic Obstructive Pulmonary Disease (COPD): No Hx Cancer: No Hx Cardiac Disorders: No Hx Congestive Heart Failure: No Hx Hypertension: No Hx Hypercholesterolemia: No Hx Pacemaker: No HX Cerebrovascular Accident: No Hx Seizures: Yes (last seizure was in 2015) Hx Dementia: No Hx Diabetes: No Hx Gastrointestinal Disorders: No Hx Liver Disease: No Hx Genitourinary Disorders: No Hx Sexually Transmitted Disorders: No Hx Renal Disease (ESRD): No Hx Thyroid Disease: No Hx Human Immunodeficiency Virus (HIV): No Hx Hepatitis C: Yes Hx Depression: Yes Hx Suicide Attempt: Yes (Tried to overdose in 2013) Hx Bipolar Disorder: Yes Hx Schizophrenia: No - Patient Surgical History Past Surgical History: Yes Hx Neurologic Surgery: No Hx Cataract Extraction: No Hx Cardiac Surgery: No Hx Lung Surgery: No Hx Breast Surgery: No Hx Breast Biopsy: No Hx Abdominal Surgery: No Hx Appendectomy: No Hx Cholecystectomy: No Hx Genitourinary Surgery: No Hx Section: No Hx Orthopedic Surgery: No Other Surgical History: LEFT INGUINAL HERNIA 2003 Anesthesia Reaction: No - PPD History Previous Implant?: Yes Documented Results: Negative w/o proof Date: 07/18/17 - Smoking Cessation Smoking history: Current every day smoker Have you smoked in the past 12 months: Yes Aproximately how many cigarettes per day: 3 Cigars Per Day: 0 Hx Chewing Tobacco Use: No Initiated information on smoking cessation: No - Substances Abused Alcohol Route: Oral Frequency: Daily Amount used: 2-3 6 pks beer Age of first use: 11 Date of Last Use: 08/26/18 Benzodiazepine (Klonopin) Route: Oral Frequency: 3-6 times per week Amount used: 1-4mg Age of first use: 24 Date of Last Use: 08/24/18 Family Disease History - Family Disease History Family Disease History: Diabetes: Father, CA: Sister, Respiratory: Sister, Other : Father Admission Physical Exam [facility] - Vital Signs Vital Signs: Vital Signs - 24 hr 08/26/18 16:02 Temperature 98.3 F Pulse Rate 74 Respiratory 19 Rate Blood Pressure 125/85 - Physical General Appearance: Yes: Mild Distress, Intoxicated, Anxious HEENTM: Yes: Hearing grossly Normal, Normocephalic, Normal Voice Respiratory: Yes: Chest Non-Tender, Lungs Clear, Normal Breath Sounds Neck: Yes: No masses,lesions,Nodules, Trachea in good position Breast: Yes: Breast Exam Deferred Cardiology: Yes: Regular Rhythm, Regular Rate, S1, S2 Abdominal: Yes: Normal Bowel Sounds, Non Tender Genitourinary: Yes: Within Normal Limits Back: Yes: Normal Inspection Musculoskeletal: Yes: Gait Steady, Back pain Extremities: Yes: Normal Inspection, Normal Range of Motion, Non-Tender Neurological: Yes: Fully Oriented, Normal Mood/Affect, Normal Response Integumentary: Yes: Normal Color, Dry, Warm - Diagnostic (1) Alcohol dependence with uncomplicated withdrawal Current Visit: No Status: Acute (2) Opioid dependence on agonist therapy Current Visit: No Status: Chronic [facility] Breath Alcohol Content Breath Alcohol Content: 0.015 Urine Drug Screen - Results Drug Screen Negative: No Urine Drug Screen Results: BZO-Benzodiazepines, MTD-Methadone
[2018-08-26] MEDS ORDERED: ACETAMINOPHEN 325 MG TABLET (FP) PO PRN (17:58)
[2018-08-26] MEDS ORDERED: chlordiazePOXIDE HCL 25 MG CAPSULE PO PRN (17:58)
[2018-08-26] MEDS ORDERED: MAGNESIUM HYDROX 2400MG/30ML ORAL SUSPENSION 30 ML CUP PO PRN (17:58)
[2018-08-26] MEDS ORDERED: MAG HYDROX/AL HYDROX/SIMETH 30 ML UNIT-DOSE CUP PO PRN (17:58)
[2018-08-26] MEDS ORDERED: MAGNESIUM CITRATE 300 ML BOTTLE PO PRN (17:58)
[2018-08-26] MEDS ORDERED: P-EPHED 60MG/TRIPROLIDI 2.5MG TABLET PO PRN (17:58)
[2018-08-26] MEDS ORDERED: IBUPROFEN 400 MG TABLET (FP) PO PRN (17:58)
[2018-08-26] MEDS ORDERED: guaiFENesin/D-METHORPHAN HB 10 ML UNIT-DOSE CUPS PO PRN (17:58)
[2018-08-26] MEDS ORDERED: MENTHOL/PHENOL 1 EACH UD MM PRN (17:58)
[2018-08-26] MEDS ORDERED: MELATONIN 5 MG TABLETS PO PRN (22:00)
[2018-08-26] MEDS: chlordiazePOXIDE HCL 25 MG CAPSULE PO SCH (22:53)
[2018-08-26] MEDS: THIAMINE HCL 100 MG TABLET (FP) PO SCH (22:53)
[2018-08-27 03:28] LABS: URINE APPEARANCE CLEAR; URINE BILIRUBIN NEGATIVE (<2.0 mg/dL); URINE COLOR YELLOW; URINE GLUCOSE (UA) NEGATIVE (NEGATIVE); URINE KETONE NEGATIVE (NEGATIVE); URINE LEUK ESTERASE TRACE (NEGATIVE); URINE NITRITE NEGATIVE (NEGATIVE); URINE PROTEIN NEGATIVE (NEGATIVE); URINE UROBILINOGEN 4.0 E.U/dl mg/dL (0.2-1.0)
[2018-08-27 03:46] LABS: URINE BACTERIA RARE /hpf (NONE SEEN)
[2018-08-27] MEDS: chlordiazePOXIDE HCL 25 MG CAPSULE PO SCH ×4 (06:12→22:48)
[2018-08-27] MEDS ORDERED: METHADONE HCL 10 MG TABLET PO ONE (09:20)
[2018-08-27] MEDS ORDERED: METHADONE 160 MG, METHADONE 20 MG PO ONE (09:30)
[2018-08-27 09:47] LABS: HEMATOCRIT 40.6 % (35.4-49); MCH 30.1 pg (25.7-33.7); MEAN CELL VOLUME 94.1 fl (80-96); MEAN PLT VOLUME 9.1 fl (7.5-11.1); PLATELET COUNT 194 K/MM3 (134-434); RBC 4.32 M/mm3 (4.00-5.60); RDW 12.6 % (11.9-15.9); WHITE BLOOD COUNT 11.7 K/mm3 (4.0-10.0)
[2018-08-27 09:57] LABS: ALK PHOS 98 U/L (45-117); ANION GAP 10 MMOL/L (8-16); BILIRUBIN,TOTAL 0.4 mg/dL (0.2-1); BLOOD UREA NITROGEN 13 mg/dL (7-18); CALCIUM 8.4 mg/dL (8.5-10.1); CHLORIDE 102 mmol/L (98-107); CO2 30 mmol/L (21-32); CREATININE 0.6 mg/dL (0.55-1.3); GLUCOSE,RANDOM 82 mg/dL (74-106); POTASSIUM 4.6 mmol/L (3.5-5.1); SGOT/AST 49 U/L (15-37); SGPT/ALT 69 U/L (13-61); SODIUM 141 mmol/L (136-145); TOT PROT 6.3 g/dl (6.4-8.2)
[2018-08-27] MEDS: PRENATAL VITAMINS W/ FOLIC ACID TABLET (FP) PO SCH (10:33)
[2018-08-27] MEDS ORDERED: METHADONE HCL 10 MG TABLET ONE (10:34)
[2018-08-27] MEDS ORDERED: METHADONE HCL 40 MG DISPERSABLE TABLET ONE (10:34)
--- NOTE | 2018-08-27 10:55 | PN ---
[facility] CIWA - CIWA Score Nausea/Vomitin-Mild Nausea/No Vomiting Muscle Tremors: 3 Anxiety: 2 Agitation: 1-Slight > Activity Paroxysmal Sweats: 1-Minimal Palms Moist Orientation: 1-Uncertain about Date Tacttile Disturbances: 1-Very Mild Itch/Numbness Auditory Disturbances: 1-Very Mild Visual Disturbances: 0-None Headache: 1-Very Mild CIWA-Ar Total Score: 12 BHS Progress Note (SOAP) Subjective: tremor sweat anxiety restlessness gi distress Objective: 08/27/18 10:57 Vital Signs Temperature 97.9 F 08/27/18 09:08 Pulse Rate 53 L 08/27/18 09:08 Respiratory Rate 18 08/27/18 09:08 Blood Pressure 117/68 08/27/18 09:08 O2 Sat by Pulse Oximetry (%) Laboratory Last Values WBC 11.7 K/mm3 (4.0-10.0) H 08/27/18 07:00 RBC 4.32 M/mm3 (4.00-5.60) 08/27/18 07:00 Hgb 13.0 GM/dL (11.7-16.9) 08/27/18 07:00 Hct 40.6 % (35.4-49) 08/27/18 07:00 MCV 94.1 fl (80-96) 08/27/18 07:00 MCH 30.1 pg (25.7-33.7) 08/27/18 07:00 MCHC 32.0 g/dl (32.0-35.9) 08/27/18 07:00 RDW 12.6 % (11.9-15.9) 08/27/18 07:00 Plt Count 194 K/MM3 (134-434) D 08/27/18 07:00 MPV 9.1 fl (7.5-11.1) 08/27/18 07:00 Sodium 141 mmol/L (136-145) 08/27/18 07:00 Potassium 4.6 mmol/L (3.5-5.1) 08/27/18 07:00 Chloride 102 mmol/L (98-107) 08/27/18 07:00 Carbon Dioxide 30 mmol/L (21-32) 08/27/18 07:00 Anion Gap 10 MMOL/L (8-16) 08/27/18 07:00 BUN 13 mg/dL (7-18) 08/27/18 07:00 Creatinine 0.6 mg/dL (0.55-1.3) 08/27/18 07:00 Creat Clearance w eGFR > 60 (>60) 08/27/18 07:00 Random Glucose 82 mg/dL (74-106) 08/27/18 07:00 Calcium 8.4 mg/dL (8.5-10.1) L 08/27/18 07:00 Total Bilirubin 0.4 mg/dL (0.2-1) 08/27/18 07:00 AST 49 U/L (15-37) H 08/27/18 07:00 ALT 69 U/L (13-61) H 08/27/18 07:00 Alkaline Phosphatase 98 U/L (45-117) 08/27/18 07:00 Total Protein 6.3 g/dl (6.4-8.2) L 08/27/18 07:00 Albumin 3.0 g/dl (3.4-5.0) L 08/27/18 07:00 Urine Color Yellow 08/26/18 21:40 Urine Appearance Clear 08/26/18 21:40 Urine pH 6.0 (5.0-8.0) 08/26/18 21:40 Ur Specific [place] 1.011 (1.010-1.035) 08/26/18 21:40 Urine Protein Negative (NEGATIVE) 08/26/18 21:40 Urine Glucose (UA) Negative (NEGATIVE) 08/26/18 21:40 Urine Ketones Negative (NEGATIVE) 08/26/18 21:40 Urine Blood Negative (NEGATIVE) 08/26/18 21:40 Urine Nitrite Negative (NEGATIVE) 08/26/18 21:40 Urine Bilirubin Negative (<2.0 mg/dL) 08/26/18 21:40 Urine Urobilinogen 4.0 e.u/dl mg/dL (0.2-1.0) 08/26/18 21:40 Ur Leukocyte Esterase Trace (NEGATIVE) 08/26/18 21:40 Urine WBC (Auto) 1 /hpf (3-5) 08/26/18 21:40 Urine RBC (Auto) <1 /hpf (0-3) 08/26/18 21:40 Urine Bacteria Rare /hpf (NONE SEEN) 08/26/18 21:40 lab noted Assessment: 08/27/18 10:58 withdrawal sx Plan: continue detox
--- NOTE | 2018-08-27 11:22 | CONSULT ---
[facility] Psychiatric Consult - Data Date of interview: 08/27/18 Admission source: [facility] Identifying data: Patient is a 53 year old male, father of a 33 year old son (other son while incarcerated), unemployed, domiciled, and is supported by [facility]. This is one of multiple admissions for patient. Patient admitted to for alcohol, opioid, and benzodiazepine dependence. Substance Abuse History: Smoking Cessation. Smoking history: Current every day smoker. Have you smoked in the past 12 months: Yes. Aproximately how many cigarettes per day: 3. Cigars Per Day: 0. Hx Chewing Tobacco Use: No. Initiated information on smoking cessation: No. - Substances Abused. Alcohol. Route: Oral. Frequency: Daily. Amount used: 2-3 6 pks beer. Age of first use: 11. Date of Last Use: 08/26/18. Benzodiazepine (Klonopin). Route: Oral. Frequency: 3-6 times per week. Amount used: 1-4mg. Age of first use: 24. Date of Last Use: 08/24/18 Medical History: Seizures (2016), Left inguinal hernia (2003) Psychiatric History: Patient reports multiple psychiatric hospitalizations, most recently two years ago although is unable to recall the name of the hospital. Diagnosis of bipolar/schizophrenia. He reports psychiatric hospitalizations at hospitals in [facility] and [place]. He currently see's Dr. Lombardi at [facility]. He is prescribed zoloft 100mg + Seroquel 50mg + Trazodone 50mg. Patient is also prescribed topmax 50mg but he reports noncompliance to medication.Patient is on methadone maintenance (180mg) at the [facility]. He reports multiple suicide attempts via overdose, most recently six months ago. At present, he reports difficulty sleeping. Physical/Sexual Abuse/Trauma History: denies. Mental Status Exam - Mental Status Exam Alert and Oriented to: Time, Place, Person Cognitive Function: Good Patient Appearance: Well Groomed Mood: Euthymic Affect: Mood Congruent Patient Behavior: Appropriate, Cooperative Speech Pattern: Clear, Appropriate Voice Loudness: Normal Thought Process: Intact, Goal Oriented Thought Disorder: Not Present Hallucinations: Denies Suicidal Ideation: Denies Homicidal Ideation: Denies Insight/Judgement: Poor Sleep: Poorly Appetite: Fair Muscle strength/Tone: Normal Gait/Station: Normal Psychiatric Findings - Problem List ([place] 1, 2,3) (1) Alcohol dependence with uncomplicated withdrawal Current Visit: Yes Status: Acute (2) Schizoaffective disorder Current Visit: Yes Status: Chronic (3) Sedative hypnotic or anxiolytic dependence Current Visit: Yes Status: Acute (4) Opioid dependence on agonist therapy Current Visit: Yes Status: Chronic - Initial Treatment Plan Initial Treatment Plan: Psychoeducation provided. Detoxification in progress. Will order zoloft 100mg + Seroquel 50mg qhs + Trazodone 50mg qhs. Benefits and side effects discussed. Verbal consent given.
[2018-08-27] MEDS: SERTRALINE HCL 50 MG TABLET (FP) PO SCH (14:00)
[2018-08-27] MEDS: traZODone HCL 50 MG TABLET (FP) PO SCH (22:48)
[2018-08-27] MEDS: QUEtiapine FUMARATE 50 MG TABLET PO SCH (22:48)
[2018-08-27] MEDS: THIAMINE HCL 100 MG TABLET (FP) PO SCH (22:48)
[2018-08-28] MEDS: chlordiazePOXIDE HCL 25 MG CAPSULE PO SCH ×3 (05:27→16:41)
[2018-08-28] MEDS ORDERED: METHADONE HCL 40 MG DISPERSABLE TABLET ONE (05:27)
[2018-08-28] MEDS ORDERED: METHADONE HCL 10 MG TABLET ONE (05:28)
[2018-08-28] MEDS: METHADONE 160 MG, METHADONE 20 MG PO SCH (05:29)
[2018-08-28] MEDS ORDERED: METHADONE HCL 40 MG DISPERSABLE TABLET PO SCH (06:00)
--- NOTE | 2018-08-28 10:29 | PN ---
S CIWA - CIWA Score Nausea/Vomitin-Mild Nausea/No Vomiting Muscle Tremors: 1-None Visible, but [place] Anxiety: 1-Mildly Anxious Agitation: 1-Slight > Activity Paroxysmal Sweats: No Perspiration Orientation: 0-Oriented Tacttile Disturbances: 0-None Auditory Disturbances: 0-None Visual Disturbances: 0-None Headache: 0-None Present CIWA-Ar Total Score: 4 BHS Progress Note (SOAP) Subjective: s- pt c/o feeling weak, would like Ensure O Vital Signs - 24 hr 08/27/18 08/27/18 08/27/18 14:16 17:21 22:13 Temperature 98.1 F 97.9 F 97.7 F Pulse Rate 62 57 L 62 Respiratory 18 18 18 Rate Blood Pressure 98/64 91/55 L 136/94 08/28/18 08/28/18 08/28/18 00:30 03:30 06:00 Temperature 97.5 F L Pulse Rate 53 L Respiratory 18 18 18 Rate Blood Pressure 134/91 08/28/18 09:57 Temperature 98.2 F Pulse Rate 62 Respiratory 18 Rate Blood Pressure 111/79 a/p: alcohol use disorder: continue detox protocol, pt stable, ensure ordered
[2018-08-28] MEDS: PRENATAL VITAMINS W/ FOLIC ACID TABLET (FP) PO SCH (10:39)
[2018-08-28] MEDS: SERTRALINE HCL 50 MG TABLET (FP) PO SCH (10:39)
[2018-08-28] MEDS: chlordiazePOXIDE 5 MG CAPSULE PO SCH (22:00)
[2018-08-28] MEDS: THIAMINE HCL 100 MG TABLET (FP) PO SCH (22:00)
[2018-08-28] MEDS: traZODone HCL 50 MG TABLET (FP) PO SCH (22:00)
[2018-08-28] MEDS: QUEtiapine FUMARATE 50 MG TABLET PO SCH (22:00)
[2018-08-29] MEDS ORDERED: METHADONE HCL 10 MG TABLET ONE (04:50)
[2018-08-29] MEDS ORDERED: METHADONE HCL 40 MG DISPERSABLE TABLET ONE (04:50)
[2018-08-29] MEDS: METHADONE 160 MG, METHADONE 20 MG PO SCH (05:31)
[2018-08-29] MEDS: chlordiazePOXIDE 5 MG CAPSULE PO SCH ×3 (05:31→17:48)
[2018-08-29] MEDS: PRENATAL VITAMINS W/ FOLIC ACID TABLET (FP) PO SCH (10:32)
[2018-08-29] MEDS: SERTRALINE HCL 50 MG TABLET (FP) PO SCH (10:33)
[2018-08-29] MEDS ORDERED: NICOTINE POLACRILEX 4 MG GUM BUC PRN (10:37)
--- NOTE | 2018-08-29 14:54 | PN ---
BHS Progress Note (SOAP) Subjective: Constipation, Body Aches, Fatigue. Objective: PATIENT A & O X 3. NO ACUTE DISTRESS. 08/29/18 14:53 Vital Signs Temperature 97.9 F 08/29/18 13:19 Pulse Rate 71 08/29/18 13:19 Respiratory Rate 17 08/29/18 13:19 Blood Pressure 94/66 08/29/18 13:19 O2 Sat by Pulse Oximetry (%) Laboratory Tests 08/26/18 08/27/18 08/27/18 21:40 07:00 07:00 WBC 11.7 H RBC 4.32 Hgb 13.0 Hct 40.6 MCV 94.1 MCH 30.1 MCHC 32.0 RDW 12.6 Plt Count 194 D MPV 9.1 Sodium 141 Potassium 4.6 Chloride 102 Carbon Dioxide 30 Anion Gap 10 BUN 13 Creatinine 0.6 Creat Clearance w eGFR > 60 Random Glucose 82 Calcium 8.4 L Total Bilirubin 0.4 AST 49 H ALT 69 H Alkaline Phosphatase 98 Total Protein 6.3 L Albumin 3.0 L Urine Color Yellow Urine Appearance Clear Urine pH 6.0 Ur Specific [place] 1.011 Urine Protein Negative Urine Glucose (UA) Negative Urine Ketones Negative Urine Blood Negative Urine Nitrite Negative Urine Bilirubin Negative Urine Urobilinogen 4.0 e.u/dl Ur Leukocyte Esterase Trace Urine WBC (Auto) 1 Urine RBC (Auto) <1 Urine Bacteria Rare RPR Titer 08/27/18 07:00 WBC RBC Hgb Hct MCV MCH MCHC RDW Plt Count MPV Sodium Potassium Chloride Carbon Dioxide Anion Gap BUN Creatinine Creat Clearance w eGFR Random Glucose Calcium Total Bilirubin AST ALT Alkaline Phosphatase Total Protein Albumin Urine Color Urine Appearance Urine pH Ur Specific [place] Urine Protein Urine Glucose (UA) Urine Ketones Urine Blood Urine Nitrite Urine Bilirubin Urine Urobilinogen Ur Leukocyte Esterase Urine WBC (Auto) Urine RBC (Auto) Urine Bacteria RPR Titer Nonreactive LABS NOTED. Assessment: 08/29/18 14:54 WITHDRAWAL SYMPTOMS. Plan: CONTINUE DETOX. INCREASE DAILY PO FLUID INTAKE.
[2018-08-29] MEDS: chlordiazePOXIDE HCL 10 MG CAPSULE PO SCH (22:43)
[2018-08-29] MEDS: traZODone HCL 50 MG TABLET (FP) PO SCH (22:43)
[2018-08-29] MEDS: QUEtiapine FUMARATE 50 MG TABLET PO SCH (22:44)
[2018-08-29] MEDS: THIAMINE HCL 100 MG TABLET (FP) PO SCH (22:44)
[2018-08-30] MEDS ORDERED: METHADONE HCL 40 MG DISPERSABLE TABLET ONE (05:01)
[2018-08-30] MEDS ORDERED: METHADONE HCL 10 MG TABLET ONE (05:02)
[2018-08-30] MEDS: METHADONE 160 MG, METHADONE 20 MG PO SCH (05:37)
[2018-08-30] MEDS: chlordiazePOXIDE HCL 10 MG CAPSULE PO SCH ×2 (05:37→10:00)
[2018-08-30 09:32] VITALS: BP 99/64; PULSE 69; TEMP 99
[2018-08-30] MEDS: SERTRALINE HCL 50 MG TABLET (FP) PO SCH (10:43)
[2018-08-30] MEDS: PRENATAL VITAMINS W/ FOLIC ACID TABLET (FP) PO SCH (10:43)
--- NOTE | 2018-08-30 13:47 | DS ---
[facility] Detox Discharge Summary Admission Date: 08/26/18 Discharge Date: 08/30/18 - History Present History: Alcohol Dependence, Opioid Dependence, Sedative Dependence Pertinent Past History: Pt admitted for alcohol use disorder treatment- for medically supervised withdrawal- completed and discharged safely to rehab at [facility] - Physical Exam Results Vital Signs: Vital Signs Temperature 99.0 F 08/30/18 09:31 Pulse Rate 69 08/30/18 09:31 Respiratory Rate 16 08/30/18 09:31 Blood Pressure 99/64 08/30/18 09:31 O2 Sat by Pulse Oximetry (%) - Treatment Hospital Course: Detox Protocol Followed, Detoxed Safely, Responded well, Discharged Condition Good, Rehab Referral Accepted - Medication Discharge Medications: Ambulatory Orders Sertraline HCl [Zoloft] 100 mg PO DAILY #30 tablet 08/02/17 Quetiapine Fumarate [Seroquel -] 50 mg PO HS 08/26/18 Zolpidem Tartrate [Ambien] 10 mg PO HS PRN 08/26/18 Methadone [Dolophine -] 180 mg PO DAILY@0600 08/27/18 traZODone HCL [Trazodone HCl] 50 mg PO HS 08/27/18 - Diagnosis (1) Alcohol dependence with uncomplicated withdrawal Status: Acute
== END 2018-08-30 10:45 | disposition home or self-care (01) | DRG 773 ==
LOC: YASAS 15:35 → Y6N 17:43
PROC: HZ2ZZZZ Detoxification Services for Substance Abuse Treatment (ICD-10-PCS; principal; 2018-08-26)
DX: F10.230 Alcohol dependence with withdrawal, uncomplicated (principal); F13.20 Sedative, hypnotic or anxiolytic dependence, uncomplicated; F11.20 Opioid dependence, uncomplicated; F31.9 Bipolar disorder, unspecified; F25.9 Schizoaffective disorder, unspecified; B18.2 Chronic viral hepatitis C; Z86.69 Personal history of other diseases of the nervous system and sense organs; Z91.5 Personal history of self-harm
CPT/HCPCS: 36415; 80053; 81003; 81015; 85027; 86593

== ENCOUNTER 2019-02-24 16:43 | Inpatient (IN) | payer OTHER ==
[2019-02-24 21:59] VITALS: BMI 20.3
--- NOTE | 2019-02-24 23:10 | HP ---
CIWA Score Nausea/Vomitin-No Nausea/No Vomiting Muscle Tremors: None Anxiety: 4-Mod. Anxious/Guarded Agitation: 4-Moderately Restless Paroxysmal Sweats: No Perspiration Orientation: 3-Disoriented Date>2 days Tacttile Disturbances: 2-Mild Itch/Numbness/Burn Auditory Disturbances: 0-None Visual Disturbances: 2-Mild Sensitivity Headache: 2-Mild CIWA-Ar Total Score: 17 - Admission Criteria OASAS Guidelines: Admission for Medically Managed Detox: Requires at least one of the followin. CIWA greater than 12 2. Seizures within the past 24 hours 3. Delirium tremens within the past 24 hours 4. Hallucinations within the past 24 hours 5. Acute intervention needed for co occurring medical disorder 6. Acute intervention needed for co occurring psychiatric disorder 7. Severe withdrawal that cannot be handled at a lower level of care (continued vomiting, continued diarrhea, abnormal vital signs) requiring intravenous medication and/or fluids 8. Patient presents the following: CIWA greater than 12, Acute intervention needed for co-occurring med or psych disorder Admission Criteria Met: Admission criteria met Admission [facility] Chief Complaint: c/o withdrawal sx's. seeking detox Allergies/Adverse Reactions: Allergies Allergy/AdvReac Type Severity Reaction Status Date / Time peas Allergy Severe Swelling Verified 02/24/19 21:44 turkey Allergy Severe Hives Verified 02/24/19 21:44 No Known Drug Allergies Allergy Verified 02/24/19 21:44 History of Present Illness: 53 Y.O. MALE WITH ALCOHOLISM AND OPIOID DEPENDENCE ON MMTP HERE FOR DETOX. HOME MMTP RVMMTP LDM TODAY 180 MG REPORTED BY CLIENT.CLIENT IS SELF REFERRED HE IS KNOWN TO THIS PROGRAM. PRESENTS WITH C/O WITHDRAWAL SX'S. CIWA 17. REPORTS DAILY ALCOHOL CONSUMPTION. LAST USE THIS MORNING. REPORTS LONGEST CLEAN TIME 6 MONTHS IN A RESIDENTIAL PROGRAM. REPORTS HX/O WITHDRAWAL SEIZURES. LAST BEING 10/2017. HX/O DRUG OVERDOSE, DENIES PRESENT SI/HI/AVH. DOMICILED, UNEMPLOYED- DISABLED, DENIES LEGALS Exam Limitations: No Limitations - Ebola screening Have you traveled outside of the country in the last 21 days: No (N) Have you had contact with anyone from an Ebola affected area: No Do you have a fever: No - Review of Systems Constitutional: Chills, Loss of Appetite, Malaise, Night Sweats, Changes in sleep, Unexplained wgt Loss EENT: reports: Ear Pain, Dental Problems (MISSING TEETH), Throat Pain (SORE) Respiratory: reports: No Symptoms reported Cardiac: reports: No Symptoms Reported GI: reports: Poor Appetite, Poor Fluid Intake : reports: No Symptoms Reported Musculoskeletal: reports: Back Pain (CHRONIC), Joint Pain (CHRONIC), Neck Pain ( CHRONIC), Other Integumentary: reports: No Symptoms Reported Neuro: reports: Headache, Seizure (HX/O WITHDRAWAL SZ) Endocrine: reports: No Symptoms Reported Hematology: reports: No Symptoms Reported Psychiatric: reports: Orientated x3, Agitated (IRRITABLE), Anxious, Depressed Other Systems: Reviewed and Negative Patient History - Patient Medical History Hx Anemia: No Hx Asthma: No Hx Chronic Obstructive Pulmonary Disease (COPD): No Hx Cancer: No Hx Cardiac Disorders: No Hx Congestive Heart Failure: No Hx Hypertension: No Hx Hypercholesterolemia: No Hx Pacemaker: No HX Cerebrovascular Accident: No Hx Seizures: Yes (last seizure was in 2015) Hx Dementia: No Hx Diabetes: No Hx Gastrointestinal Disorders: No Hx Liver Disease: No Hx Genitourinary Disorders: No Hx Sexually Transmitted Disorders: No Hx Renal Disease (ESRD): No Hx Thyroid Disease: No Hx Human Immunodeficiency Virus (HIV): No Hx Hepatitis C: Yes (NO TXMENT) Hx Depression: Yes Hx Suicide Attempt: Yes (Tried to overdose in 2013) Hx Bipolar Disorder: Yes Hx Schizophrenia: No - Patient Surgical History Past Surgical History: Yes Hx Neurologic Surgery: No Hx Cataract Extraction: No Hx Cardiac Surgery: No Hx Lung Surgery: No Hx Breast Surgery: No Hx Breast Biopsy: No Hx Abdominal Surgery: No Hx Appendectomy: No Hx Cholecystectomy: No Hx Genitourinary Surgery: No Hx Section: No Hx Orthopedic Surgery: No Other Surgical History: LEFT INGUINAL HERNIA 2003 Anesthesia Reaction: No - PPD History Previous Implant?: Yes Documented Results: Negative w/proof Implanted On Prior R Admission?: Yes Date: 07/18/17 Results: 0MM PPD to be Administered?: Yes - Smoking Cessation Smoking history: Former smoker Have you smoked in the past 12 months: No Aproximately how many cigarettes per day: 3 If you are a former smoker, when did you quit?: 2 YEARS AGO Cigars Per Day: 0 Hx Chewing Tobacco Use: No Initiated information on smoking cessation: No - Substance & Tx. History Hx Alcohol Use: Yes Hx Substance Use: Yes Substance Use Type: Alcohol, Marijuana Hx Substance Use Treatment: Yes ([facility]) - Substances abused Alcohol Substance route: Oral Frequency: Daily Amount used: 1 pint Age of first use: 8 Date of last use: 02/24/19 Alprazolam (Xanax) Substance route: Oral Frequency: Daily Amount used: 2mg Age of first use: 43 Date of last use: 02/23/19 Other Other (specify): k2 Substance route: Smoking Frequency: Daily Amount used: $25 Age of first use: 50 Date of last use: 02/24/19 Marijuana/Hashish Substance route: Smoking Frequency: Daily Amount used: $25 Age of first use: 19 Date of last use: 02/24/19 Family Disease History - Family Disease History Family Disease History: Diabetes: Father, CA: Sister, Respiratory: Sister, Other : Father Admission Physical Exam BHS - Vital Signs Vital Signs: Vital Signs - 24 hr 02/24/19 02/24/19 21:42 22:31 Temperature 97.2 F L 97.2 F L Pulse Rate 50 L 50 L Respiratory 18 18 Rate Blood Pressure 163/100 163/100 - Physical General Appearance: Yes: Appropriately Dressed, Mild Distress, Tremorous, Irritable, Anxious HEENTM: Yes: EOMI, Normocephalic, Normal Voice, DANIELLE, Pharynx Normal, Other ( MISSING TEETH POOR DENTITION) Respiratory: Yes: Chest Non-Tender, Lungs Clear, Normal Breath Sounds, No Respiratory Distress, No Accessory Muscle Use Neck: Yes: No masses,lesions,Nodules, Supple, Trachea in good position Breast: Yes: Breast Exam Deferred Cardiology: Yes: Regular Rhythm, Regular Rate, S1, S2 Abdominal: Yes: Non Tender, Soft, Increased Bowel Sounds Genitourinary: Yes: Within Normal Limits Back: Yes: Normal Inspection Musculoskeletal: Yes: full range of Motion, Gait Steady Extremities: Yes: Normal Capillary Refill, Normal Range of Motion, Non-Tender, Tremors Neurological: Yes: Alert, Motor Strength 5/5, Disoriented (CONFUSED ABOUT DATE) , Depressed Affect Integumentary: Yes: Dry, Warm Lymphatic: Yes: Within Normal Limits - Diagnostic (1) Alcohol dependence with uncomplicated withdrawal Current Visit: Yes Status: Acute (2) Substance-induced sleep disorder Current Visit: Yes Status: Suspected (3) Weight loss Current Visit: Yes Status: Chronic (4) Cannabis dependence, uncomplicated Current Visit: Yes Status: Acute (5) Hepatitis C Current Visit: Yes Status: Chronic Qualifiers: Viral hepatitis chronicity: chronic Hepatic coma status: without hepatic coma Qualified Code(s): B18.2 - Chronic viral hepatitis C (6) Methadone maintenance therapy patient Current Visit: Yes Status: Chronic (7) At risk for dehydration due to poor fluid intake Current Visit: Yes Status: Acute Cleared for Admission S - Detox or Rehab [facility] Level of Care: Medically Managed Detox Regimen/Protocol: Librium Claeared for Rehab Admission: No Breathalyzer - Breathalyzer Breathalyzer: 0 Urine Drug Screen - Test Device Lot number: [id number] Expiration date: 11/14/20 - Control Is test valid?: Yes - Results Drug screen NEGATIVE: No Urine drug screen results: THC-Marijuana, MTD-Methadone Inpatient Rehab Admission - Rehab Decision to Admit Inpatient rehab admission?: No
[2019-02-24] MEDS ORDERED: MAGNESIUM HYDROX 2400MG/30ML ORAL SUSPENSION 30 ML CUP PO PRN (23:19)
[2019-02-24] MEDS ORDERED: MAGNESIUM CITRATE 300 ML BOTTLE PO PRN (23:19)
[2019-02-24] MEDS ORDERED: P-EPHED 60MG/TRIPROLIDI 2.5MG TABLET PO PRN (23:19)
[2019-02-24] MEDS ORDERED: DICYCLOMINE HCL 10 MG CAPSULE PO PRN (23:19)
[2019-02-24] MEDS ORDERED: BISMUTH SUBSALICYLATE 524 MG/30 ML UD PO PRN (23:19)
[2019-02-24] MEDS ORDERED: ACETAMINOPHEN 325 MG TABLET (FP) PO PRN ×2 (23:19)
[2019-02-24] MEDS ORDERED: MAG HYDROX/AL HYDROX/SIMETH 30 ML UNIT-DOSE CUP PO PRN (23:19)
[2019-02-24] MEDS ORDERED: guaiFENesin 200 MG/10 ML 10 ML UNIT-DOSE CUPS PO PRN (23:19)
[2019-02-24] MEDS ORDERED: IBUPROFEN 400 MG TABLET (FP) PO PRN ×2 (23:19)
[2019-02-24] MEDS ORDERED: MENTHOL/PHENOL 1 EACH UD MM PRN (23:19)
[2019-02-24] MEDS ORDERED: METHOCARBAMOL 500 MG TABLET PO PRN (23:19)
[2019-02-25] MEDS: chlordiazePOXIDE HCL 25 MG CAPSULE PO SCH ×3 (00:26→15:11)
[2019-02-25] MEDS: chlordiazePOXIDE HCL 10 MG CAPSULE PO PRN ×2 (00:30→20:04)
[2019-02-25] MEDS: MELATONIN 5 MG TABLETS PO PRN ×2 (00:30→21:04)
[2019-02-25] MEDS ORDERED: METHADONE HCL 10 MG TABLET PO ONE (10:19)
[2019-02-25] MEDS ORDERED: METHADONE 160 MG, METHADONE 20 MG PO ONE (10:30)
--- NOTE | 2019-02-25 10:36 | PN ---
[facility] CIWA - CIWA Score Nausea/Vomitin-No Nausea/No Vomiting Muscle Tremors: 4-Moderate,w/Arms Extend Anxiety: 4-Mod. Anxious/Guarded Agitation: 4-Moderately Restless Paroxysmal Sweats: 3 Orientation: 0-Oriented Tacttile Disturbances: 0-None Auditory Disturbances: 0-None Visual Disturbances: 0-None Headache: 0-None Present CIWA-Ar Total Score: 15 BHS Progress Note (SOAP) Subjective: irritable agitation anxiety sweats chills body aches Objective: 02/25/19 10:46 Vital Signs Temperature 97.7 F 02/25/19 09:35 Pulse Rate 55 L 02/25/19 09:35 Respiratory Rate 18 02/25/19 09:35 Blood Pressure 122/73 02/25/19 09:35 O2 Sat by Pulse Oximetry (%) labs pending aaox3 ambulating no acute distress Assessment: 02/25/19 10:46 withdrawal sx Plan: continue detox increase fluids labs ending
[2019-02-25] MEDS ORDERED: METHADONE HCL 10 MG TABLET ONE (10:37)
[2019-02-25] MEDS ORDERED: METHADONE HCL 40 MG DISPERSABLE TABLET ONE (10:38)
[2019-02-25] MEDS: PRENATAL VITAMINS W/ FOLIC ACID TABLET (FP) PO SCH (10:38)
[2019-02-25] MEDS ORDERED: TRIMETHOBENZAMIDE HCL 200MG/2ML INJ IM ONE (11:30)
[2019-02-25] MEDS: ONDANSETRON *ODT* 4 MG TABLET SL PRN ×2 (12:14→16:53)
[2019-02-25 12:22] LABS: HEMATOCRIT 42.1 % (35.4-49); MCH 31.5 pg (25.7-33.7); MCHC 33.2 g/dl (32.0-35.9); MEAN CELL VOLUME 94.7 fl (80-96); MEAN PLT VOLUME 10.4 fl (7.5-11.1); PLATELET COUNT 113 K/MM3 (134-434); RBC 4.44 M/mm3 (4.00-5.60); RDW 13.6 % (11.9-15.9); WHITE BLOOD COUNT 4.8 K/mm3 (4.0-10.0)
[2019-02-25 12:26] LABS: PH,URINE 8.5 (5.0-8.0); URINE APPEARANCE CLEAR; URINE BILIRUBIN NEGATIVE (NEGATIVE); URINE COLOR YELLOW; URINE GLUCOSE (UA) NEGATIVE (NEGATIVE); URINE KETONE NEGATIVE (NEGATIVE); URINE LEUK ESTERASE NEGATIVE (NEGATIVE); URINE NITRITE NEGATIVE (NEGATIVE); URINE PROTEIN NEGATIVE (NEGATIVE)
[2019-02-25 12:36] LABS: ALBUMIN 3.8 g/dl (3.4-5.0); BILIRUBIN,TOTAL 0.7 mg/dL (0.2-1); CALCIUM 8.6 mg/dL (8.5-10.1); CREATININE 0.6 mg/dL (0.55-1.3); TOT PROT 6.7 g/dl (6.4-8.2)
[2019-02-25] MEDS: NICOTINE POLACRILEX 2 MG GUM BUC PRN (15:13)
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
[2019-02-25] MEDS: hydrOXYzine PAMOATE 25 MG CAPSULE (FP) PO PRN (16:53)
[2019-02-25] MEDS ORDERED: hydrOXYzine PAMOATE 50 MG CAPSULE (FP) PO ONE (20:21)
[2019-02-25] MEDS: chlordiazePOXIDE 5 MG CAPSULE PO SCH (20:26)
[2019-02-25] MEDS: THIAMINE HCL 100 MG TABLET (FP) PO SCH (21:04)
[2019-02-26] MEDS ORDERED: METHADONE HCL 10 MG TABLET ONE (04:53)
[2019-02-26] MEDS ORDERED: METHADONE HCL 40 MG DISPERSABLE TABLET ONE (04:54)
[2019-02-26] MEDS: chlordiazePOXIDE 5 MG CAPSULE PO SCH ×2 (05:21→13:15)
[2019-02-26] MEDS: METHADONE 160 MG, METHADONE 20 MG PO SCH (05:22)
[2019-02-26] MEDS: NICOTINE POLACRILEX 2 MG GUM BUC PRN ×2 (05:26→10:54)
[2019-02-26] MEDS ORDERED: METHADONE HCL 40 MG DISPERSABLE TABLET PO SCH (06:00)
--- NOTE | 2019-02-26 10:43 | PN ---
[facility] CIWA - CIWA Score Nausea/Vomitin-No Nausea/No Vomiting Muscle Tremors: 3 Anxiety: 3 Agitation: 3 Paroxysmal Sweats: 2 Orientation: 0-Oriented Tacttile Disturbances: 0-None Auditory Disturbances: 0-None Visual Disturbances: 0-None Headache: 0-None Present CIWA-Ar Total Score: 11 S Progress Note (SOAP) Subjective: stomach cramping sweats shakes interrupted sleep body aches anxiety Objective: 02/26/19 10:43 Vital Signs Temperature 97.5 F L 02/26/19 09:22 Pulse Rate 57 L 02/26/19 09:22 Respiratory Rate 18 02/26/19 09:22 Blood Pressure 136/99 02/26/19 09:22 O2 Sat by Pulse Oximetry (%) Laboratory Tests 02/25/19 02/25/19 02/25/19 07:30 07:30 07:30 WBC 4.8 RBC 4.44 Hgb 14.0 Hct 42.1 MCV 94.7 MCH 31.5 MCHC 33.2 RDW 13.6 Plt Count 113 L D MPV 10.4 D Sodium 141 Potassium 4.0 Chloride 105 Carbon Dioxide 31 Anion Gap 5 L BUN 8 Creatinine 0.6 Est GFR (CKD-EPI)AfAm 132.11 Est GFR (CKD-EPI)NonAf 113.99 Random Glucose 69 L Calcium 8.6 Total Bilirubin 0.7 AST 67 H ALT 69 H Alkaline Phosphatase 84 Total Protein 6.7 Albumin 3.8 Urine Color Urine Appearance Urine pH Ur Specific [place] Urine Protein Urine Glucose (UA) Urine Ketones Urine Blood Urine Nitrite Urine Bilirubin Urine Urobilinogen Ur Leukocyte Esterase RPR Titer Nonreactive HIV 1&2 Antibody Screen HIV P24 Antigen 02/25/19 02/25/19 07:30 07:30 WBC RBC Hgb Hct MCV MCH MCHC RDW Plt Count MPV Sodium Potassium Chloride Carbon Dioxide Anion Gap BUN Creatinine Est GFR (CKD-EPI)AfAm Est GFR (CKD-EPI)NonAf Random Glucose Calcium Total Bilirubin AST ALT Alkaline Phosphatase Total Protein Albumin Urine Color Yellow Urine Appearance Clear Urine pH 8.5 H D Ur Specific [place] 1.010 Urine Protein Negative Urine Glucose (UA) Negative Urine Ketones Negative Urine Blood Negative Urine Nitrite Negative Urine Bilirubin Negative Urine Urobilinogen 1.0 Ur Leukocyte Esterase Negative RPR Titer HIV 1&2 Antibody Screen Negative HIV P24 Antigen Negative aaox3 ambulating no acute distress Assessment: 02/26/19 10:43 withdrawal sx Plan: continue detox increase fluids ensure bid bently prn
[2019-02-26] MEDS: PRENATAL VITAMINS W/ FOLIC ACID TABLET (FP) PO SCH (10:49)
[2019-02-26] MEDS: hydrOXYzine PAMOATE 25 MG CAPSULE (FP) PO PRN (10:49)
[2019-02-26] MEDS: SERTRALINE HCL 50 MG TABLET (FP) PO SCH (15:58)
[2019-02-26] MEDS ORDERED: chlordiazePOXIDE HCL 10 MG CAPSULE PO PRN (21:00)
[2019-02-26] MEDS: traZODone HCL 50 MG TABLET (FP) PO SCH (21:26)
[2019-02-26] MEDS: THIAMINE HCL 100 MG TABLET (FP) PO SCH (21:26)
[2019-02-26] MEDS: chlordiazePOXIDE HCL 10 MG CAPSULE PO SCH (21:26)
[2019-02-26] MEDS: QUEtiapine FUMARATE 50 MG TABLET PO SCH (21:26)
[2019-02-27] MEDS ORDERED: METHADONE HCL 40 MG DISPERSABLE TABLET ONE (04:28)
[2019-02-27] MEDS ORDERED: METHADONE HCL 10 MG TABLET ONE (04:28)
[2019-02-27] MEDS: chlordiazePOXIDE HCL 10 MG CAPSULE PO SCH ×3 (06:08→21:07)
[2019-02-27] MEDS: METHADONE 160 MG, METHADONE 20 MG PO SCH (06:08)
[2019-02-27] MEDS ORDERED: SERTRALINE HCL 50 MG TABLET (FP) PO SCH (10:00)
[2019-02-27] MEDS: PRENATAL VITAMINS W/ FOLIC ACID TABLET (FP) PO SCH (10:01)
[2019-02-27] MEDS: SERTRALINE HCL 50 MG TABLET (FP) PO SCH (10:02)
--- NOTE | 2019-02-27 11:43 | PN ---
[facility] Progress Note (SOAP) Subjective: feeling much better some body aches Objective: 02/27/19 11:42 Vital Signs Temperature 98.4 F 02/27/19 10:39 Pulse Rate 52 L 02/27/19 10:39 Respiratory Rate 18 02/27/19 10:39 Blood Pressure 109/80 02/27/19 10:39 O2 Sat by Pulse Oximetry (%) aaox3 ambulating no acute distress Assessment: 02/27/19 11:43 mild withdrawal sx Plan: continue detox increase fluids d/c in am
[2019-02-27] MEDS: hydrOXYzine PAMOATE 25 MG CAPSULE (FP) PO PRN (17:19)
[2019-02-27] MEDS: MELATONIN 5 MG TABLETS PO PRN (21:07)
[2019-02-27] MEDS: QUEtiapine FUMARATE 50 MG TABLET PO SCH (21:07)
[2019-02-27] MEDS: traZODone HCL 50 MG TABLET (FP) PO SCH (21:07)
[2019-02-27] MEDS: THIAMINE HCL 100 MG TABLET (FP) PO SCH (21:08)
[2019-02-28] MEDS ORDERED: METHADONE HCL 10 MG TABLET ONE (04:16)
[2019-02-28] MEDS ORDERED: METHADONE HCL 40 MG DISPERSABLE TABLET ONE (04:17)
[2019-02-28] MEDS: METHADONE 160 MG, METHADONE 20 MG PO SCH (05:51)
--- NOTE | 2019-02-28 09:38 | DS ---
[facility] Detox Discharge Summary Admission Date: 02/24/19 Discharge Date: 02/28/19 - History Present History: Alcohol Dependence - Physical Exam Results Vital Signs: Vital Signs Temperature 97.9 F 02/28/19 09:16 Pulse Rate 51 L 02/28/19 09:16 Respiratory Rate 02/28/19 09:16 Blood Pressure 106/63 02/28/19 09:16 O2 Sat by Pulse Oximetry (%) - Treatment Hospital Course: Detox Protocol Followed, Detoxed Safely, Responded well, Discharged Condition Good, Rehab Referral Accepted - Medication Discharge Medications: Ambulatory Orders Sertraline HCl [Zoloft] 100 mg PO DAILY #30 tablet 08/02/17 Quetiapine Fumarate [Seroquel -] 50 mg PO HS 08/26/18 Zolpidem Tartrate [Ambien] 10 mg PO HS PRN 08/26/18 Methadone [Dolophine -] 180 mg PO DAILY@0600 08/27/18 traZODone HCL [Trazodone HCl] 50 mg PO HS 08/27/18 - Diagnosis (1) Alcohol dependence with uncomplicated withdrawal Current Visit: Yes Status: Chronic (2) Cannabis dependence, uncomplicated Current Visit: Yes Status: Chronic (3) Hepatitis C Current Visit: Yes Status: Chronic Qualifiers: Viral hepatitis chronicity: chronic Hepatic coma status: without hepatic coma Qualified Code(s): B18.2 - Chronic viral hepatitis C (4) Insomnia Current Visit: Yes Status: Chronic (5) Methadone maintenance therapy patient Current Visit: Yes Status: Chronic (6) Nicotine dependence Current Visit: Yes Status: Chronic Qualifiers: Nicotine product type: cigarettes Substance use status: in withdrawal Qualified Code(s): F17.213 - Nicotine dependence, cigarettes, with withdrawal (7) Schizoaffective disorder Current Visit: Yes Status: Chronic (8) Sedative hypnotic or anxiolytic dependence Current Visit: Yes Status: Chronic (9) Substance induced mood disorder Current Visit: Yes Status: Chronic (10) Substance-induced sleep disorder Current Visit: Yes Status: Suspected - AMA Did Patient Leave Against Medical Advice: No ([facility])
[2019-02-28] MEDS: PRENATAL VITAMINS W/ FOLIC ACID TABLET (FP) PO SCH (10:00)
[2019-02-28] MEDS: SERTRALINE HCL 50 MG TABLET (FP) PO SCH (10:01)
[2019-02-28 13:41] VITALS: BP 131/89; PULSE 70; TEMP 97.7
== END 2019-02-28 12:25 | disposition other institution (70) | DRG 773 ==
LOC: YASAS 16:43 → Y6N 23:37
PROVIDERS: ADMIT Surgery; ATTEND Surgery
PROC: HZ2ZZZZ Detoxification Services for Substance Abuse Treatment (ICD-10-PCS; principal; 2019-02-24)
DX: F10.230 Alcohol dependence with withdrawal, uncomplicated (principal); F11.20 Opioid dependence, uncomplicated; F13.230 Sedative, hypnotic or anxiolytic dependence with withdrawal, uncomplicated; F12.20 Cannabis dependence, uncomplicated; F17.213 Nicotine dependence, cigarettes, with withdrawal; F25.9 Schizoaffective disorder, unspecified; F19.24 Other psychoactive substance dependence with psychoactive substance-induced mood disorder; F19.282 Other psychoactive substance dependence with psychoactive substance-induced sleep disorder; B18.2 Chronic viral hepatitis C; G47.00 Insomnia, unspecified; R63.4 Abnormal weight loss; R63.8 Other symptoms and signs concerning food and fluid intake; Z86.69 Personal history of other diseases of the nervous system and sense organs; Z91.5 Personal history of self-harm
CPT/HCPCS: 36415; 80053; 81003; 85027; 86593; 87389; Q0162

== ENCOUNTER 2019-02-28 12:39 | Inpatient (IN) | payer OTHER ==
--- NOTE | 2019-02-28 11:10 | HP ---
[facility] Rehab Assess/Revision - Admission History Admitted to Rehab from[facility] - Findings Detox History & Physical reviewed: Yes Concur with findings: Yes Inpatient Rehab Admission - Rehab Decision to Admit Inpatient rehab admission?: Yes - Initial Determination Are CD services needed?: Yes Free of communicable disease: Yes Not in need of hospitalization: Yes - Rehab Admission Criteria Previous failed treatment: Yes Poor recovery environment: Yes Comorbidities: Yes Lacks judgement: Yes Patient is meeting Inpatient Rehab admission criteria:: Yes
[~2019-02-28 12:39] MED LIST: ACETAMINOPHEN 325 MG TABLET (FP) PO PRN; LOPERAMIDE HCL 2 MG CAPSULE PO PRN; MAG HYDROX/AL HYDROX/SIMETH 30 ML UNIT-DOSE CUP PO PRN; MAGNESIUM CITRATE 300 ML BOTTLE PO PRN; MENTHOL/PHENOL 1 EACH UD MM PRN; P-EPHED 60MG/TRIPROLIDI 2.5MG TABLET PO PRN; guaiFENesin 200 MG/10 ML 10 ML UNIT-DOSE CUPS PO PRN
[2019-02-28] MEDS: hydrOXYzine PAMOATE 50 MG CAPSULE (FP) PO PRN ×2 (14:48→20:14)
[2019-02-28] MEDS: MAGNESIUM HYDROX 2400MG/30ML ORAL SUSPENSION 30 ML CUP PO PRN (14:51)
[2019-02-28] MEDS: traZODone HCL 50 MG TABLET (FP) PO SCH (21:42)
[2019-02-28] MEDS: THIAMINE HCL 100 MG TABLET (FP) PO SCH (21:43)
[2019-02-28] MEDS: MELATONIN 5 MG TABLETS PO PRN (21:43)
[2019-02-28] MEDS ORDERED: QUEtiapine FUMARATE 50 MG TABLET PO SCH (22:00)
[2019-03-01] MEDS ORDERED: METHADONE HCL 10 MG TABLET ONE (05:14)
[2019-03-01] MEDS ORDERED: METHADONE HCL 40 MG DISPERSABLE TABLET ONE (05:14)
[2019-03-01] MEDS: METHADONE 160 MG, METHADONE 20 MG PO SCH (05:56)
[2019-03-01] MEDS ORDERED: METHADONE HCL 40 MG DISPERSABLE TABLET PO SCH (06:00)
[2019-03-01] MEDS ORDERED: PATIENT'S OWN MEDICATION (NON-FORMULARY) (Sertraline Hcl [Zoloft] 100 MG) PO SCH (10:00)
[2019-03-01] MEDS: PRENATAL VITAMINS W/ FOLIC ACID TABLET (FP) PO SCH (10:17)
[2019-03-01] MEDS: hydrOXYzine PAMOATE 50 MG CAPSULE (FP) PO PRN ×3 (10:17→21:39)
[2019-03-01] MEDS: SERTRALINE HCL 50 MG TABLET (FP) PO SCH (10:17)
[2019-03-01] MEDS: NICOTINE 21 MG/24 HOURS TOPICAL PATCH TD SCH (10:18)
[2019-03-01] MEDS: NICOTINE POLACRILEX 4 MG GUM BUC PRN ×2 (10:19→21:41)
[2019-03-01] MEDS: IBUPROFEN 400 MG TABLET (FP) PO PRN (14:27)
--- NOTE | 2019-03-01 14:37 | CONSULT ---
[facility] Psychiatric Consult - Data Date of interview: 03/01/19 Admission source: Transfer from [address] [place] [address] Identifying data: Readmission to [address] for this 53 y/o [place] male (completed detoxification on [address] [place] [address]) willing to address his issues (opioid, cannabis-K2, alcohol, xanax co-morbid with schizoaffective disorder) in rehabilitation. Patient is single, a father of two (one dependent is now ), homeless, unemployed and supported on SSI benefits. Substance Abuse History: Discussed in this session. Patient recognizes the following [facility] report as accurate about his additions : Smoking history: Former smoker. Have you smoked in the past 12 months: No. Aproximately how many cigarettes per day: 3. If you are a former smoker, when did you quit?: 2 YEARS AGO. Cigars Per Day: 0. Hx Chewing Tobacco Use: No. Initiated information on smoking cessation: No. - Substance & Tx. History. Hx Alcohol Use: Yes. Hx Substance Use: Yes. Substance Use Type: Alcohol, Marijuana. Hx Substance Use Treatment: Yes ([facility]). - Substances abused. Alcohol. Substance route: Oral. Frequency: Daily. Amount used: 1 pint. Age of first use: 8. Date of last use: 02/24/19. Alprazolam (Xanax). Substance route: Oral. Frequency: Daily. Amount used: 2mg. Age of first use: 43. Date of last use: 02/23/19. * * Other. Other (specify): k2. Substance route: Smoking. Frequency: Daily. Amount used: $25. Age of first use: 50. Date of last use: 02/24/19. Marijuana/Hashish. Substance route: Smoking. Frequency: Daily. Amount used: $ 25. Age of first use: 19. Date of last use: 02/24/19 Medical History: Seizures (2016) and left inguinal herniorraphy (2003). Psychiatric History: No changes since encounter with this play writer on 02/25/19. History as follows : history of multiple psychiatric hospitalizations (unnamed institutions in [place] and [place]). Diagnosed with Schizoaffective Disorder. Medicated with seroquel 50 mg/bid + trazodone 50 mg/hs + sertraline 100 mg/day. Mr Green is currrently seeing Dr Lombardi at [facility]. Patient is on methadone maintenance (180 mg/day).History of multiple suicide attempts via overdoses with medications (last attempt occurred more than a year ago). Physical/Sexual Abuse/Trauma History: Patient denies. Additional Comment: Urine drug screen results: THC-Marijuana, MTD-Methadone. Noted. Mental Status Exam - Mental Status Exam Alert and Oriented to: Time, Place, Person Cognitive Function: Good Patient Appearance: Well Groomed (wearing dark eyeglasses) Mood: Anxious, Hopeful Affect: Appropriate, Normal Range Patient Behavior: Appropriate, Cooperative Speech Pattern: Clear Voice Loudness: Normal Thought Process: Intact, Goal Oriented Thought Disorder: Not Present Hallucinations: Denies Suicidal Ideation: Denies Homicidal Ideation: Denies Insight/Judgement: Fair Sleep: Poorly, Difficulty falling asleep Appetite: Good Muscle strength/Tone: Normal Gait/Station: Normal Psychiatric Findings - Problem List ([place] 1, 2,3) (1) Alcohol dependence Current Visit: Yes Status: Chronic (2) Sedative hypnotic or anxiolytic dependence Current Visit: Yes Status: Chronic (3) Cannabis dependence, uncomplicated Current Visit: Yes Status: Chronic (4) Nicotine dependence Current Visit: Yes Status: Chronic Qualifiers: Nicotine product type: cigarettes Substance use status: in withdrawal Qualified Code(s): F17.213 - Nicotine dependence, cigarettes, with withdrawal (5) Schizoaffective disorder Current Visit: Yes Status: Chronic (6) Substance induced mood disorder Current Visit: Yes Status: Chronic (7) Insomnia Current Visit: Yes Status: Chronic - Initial Treatment Plan Initial Treatment Plan: Psychoeducation. Sleep hygiene. Support. Patient, in this session, presented complaint of cronic anxiety symptoms and requested to get back of his familiar regimen of seroquel 50 mg bid. " the daily dose keeps me calm and relaxed. I function much better ". Seroquel is raised to 50 mg po bid. Patient is reminded of side effects/benefits. Verbal agreement expressed to . AA/NA meetings. Motivational counseling. Principles of relapse prevention : discussed in session. Observation.
[2019-03-01] MEDS: QUEtiapine FUMARATE 50 MG TABLET PO SCH ×2 (15:13→21:39)
[2019-03-01] MEDS: traZODone HCL 50 MG TABLET (FP) PO SCH (21:39)
[2019-03-01] MEDS: THIAMINE HCL 100 MG TABLET (FP) PO SCH (21:39)
[2019-03-01] MEDS: MELATONIN 5 MG TABLETS PO PRN (21:40)
[2019-03-02] MEDS ORDERED: METHADONE HCL 10 MG TABLET ONE (05:46)
[2019-03-02] MEDS ORDERED: METHADONE HCL 40 MG DISPERSABLE TABLET ONE (05:46)
[2019-03-02] MEDS: METHADONE 160 MG, METHADONE 20 MG PO SCH (06:13)
[2019-03-02] MEDS: hydrOXYzine PAMOATE 50 MG CAPSULE (FP) PO PRN ×3 (10:20→21:30)
[2019-03-02] MEDS: PRENATAL VITAMINS W/ FOLIC ACID TABLET (FP) PO SCH (10:20)
[2019-03-02] MEDS: SERTRALINE HCL 50 MG TABLET (FP) PO SCH (10:20)
[2019-03-02] MEDS: QUEtiapine FUMARATE 50 MG TABLET PO SCH ×2 (10:20→21:29)
[2019-03-02] MEDS: NICOTINE 21 MG/24 HOURS TOPICAL PATCH TD SCH (10:20)
[2019-03-02] MEDS: NICOTINE POLACRILEX 4 MG GUM BUC PRN ×2 (10:20→21:31)
[2019-03-02] MEDS: traZODone HCL 50 MG TABLET (FP) PO SCH (21:29)
[2019-03-02] MEDS: THIAMINE HCL 100 MG TABLET (FP) PO SCH (21:29)
[2019-03-02] MEDS: MELATONIN 5 MG TABLETS PO PRN (21:29)
[2019-03-03] MEDS ORDERED: METHADONE HCL 10 MG TABLET ONE (03:02)
[2019-03-03] MEDS ORDERED: METHADONE HCL 40 MG DISPERSABLE TABLET ONE (03:02)
[2019-03-03] MEDS: METHADONE 160 MG, METHADONE 20 MG PO SCH (06:04)
[2019-03-03] MEDS: NICOTINE POLACRILEX 4 MG GUM BUC PRN ×2 (10:49→21:34)
[2019-03-03] MEDS: SERTRALINE HCL 50 MG TABLET (FP) PO SCH (10:49)
[2019-03-03] MEDS: NICOTINE 21 MG/24 HOURS TOPICAL PATCH TD SCH (10:49)
[2019-03-03] MEDS: hydrOXYzine PAMOATE 50 MG CAPSULE (FP) PO PRN ×3 (10:49→21:33)
[2019-03-03] MEDS: QUEtiapine FUMARATE 50 MG TABLET PO SCH ×2 (10:49→21:33)
[2019-03-03] MEDS: PRENATAL VITAMINS W/ FOLIC ACID TABLET (FP) PO SCH (10:49)
[2019-03-03] MEDS: THIAMINE HCL 100 MG TABLET (FP) PO SCH (21:33)
[2019-03-03] MEDS: MELATONIN 5 MG TABLETS PO PRN (21:33)
[2019-03-03] MEDS: traZODone HCL 50 MG TABLET (FP) PO SCH (21:33)
[2019-03-04] MEDS ORDERED: METHADONE HCL 10 MG TABLET ONE (03:52)
[2019-03-04] MEDS ORDERED: METHADONE HCL 40 MG DISPERSABLE TABLET ONE (03:53)
[2019-03-04] MEDS: METHADONE 160 MG, METHADONE 20 MG PO SCH (06:16)
[2019-03-04] MEDS: SERTRALINE HCL 50 MG TABLET (FP) PO SCH (10:21)
[2019-03-04] MEDS: QUEtiapine FUMARATE 50 MG TABLET PO SCH ×2 (10:22→21:35)
[2019-03-04] MEDS: PRENATAL VITAMINS W/ FOLIC ACID TABLET (FP) PO SCH (10:22)
[2019-03-04] MEDS: hydrOXYzine PAMOATE 50 MG CAPSULE (FP) PO PRN ×3 (10:22→21:35)
[2019-03-04] MEDS: NICOTINE 21 MG/24 HOURS TOPICAL PATCH TD SCH (10:22)
[2019-03-04] MEDS: NICOTINE POLACRILEX 4 MG GUM BUC PRN ×3 (10:23→21:36)
[2019-03-04] MEDS: MAGNESIUM HYDROX 2400MG/30ML ORAL SUSPENSION 30 ML CUP PO PRN (13:53)
[2019-03-04] MEDS: THIAMINE HCL 100 MG TABLET (FP) PO SCH (21:35)
[2019-03-04] MEDS: traZODone HCL 50 MG TABLET (FP) PO SCH (21:35)
[2019-03-04] MEDS: MELATONIN 5 MG TABLETS PO PRN (21:35)
[2019-03-05] MEDS ORDERED: METHADONE HCL 10 MG TABLET ONE (04:24)
[2019-03-05] MEDS ORDERED: METHADONE HCL 40 MG DISPERSABLE TABLET ONE (04:25)
[2019-03-05] MEDS: METHADONE 160 MG, METHADONE 20 MG PO SCH (06:09)
[2019-03-05] MEDS: NICOTINE POLACRILEX 4 MG GUM BUC PRN ×2 (10:25→21:41)
[2019-03-05] MEDS: NICOTINE 21 MG/24 HOURS TOPICAL PATCH TD SCH (10:25)
[2019-03-05] MEDS: IBUPROFEN 400 MG TABLET (FP) PO PRN ×2 (10:25→21:39)
[2019-03-05] MEDS: hydrOXYzine PAMOATE 50 MG CAPSULE (FP) PO PRN ×3 (10:25→21:38)
[2019-03-05] MEDS: SERTRALINE HCL 50 MG TABLET (FP) PO SCH (10:25)
[2019-03-05] MEDS: PRENATAL VITAMINS W/ FOLIC ACID TABLET (FP) PO SCH (10:25)
[2019-03-05] MEDS: QUEtiapine FUMARATE 50 MG TABLET PO SCH ×2 (10:25→21:38)
[2019-03-05] MEDS: traZODone HCL 50 MG TABLET (FP) PO SCH (21:38)
[2019-03-05] MEDS: THIAMINE HCL 100 MG TABLET (FP) PO SCH (21:38)
[2019-03-05] MEDS: MELATONIN 5 MG TABLETS PO PRN (21:38)
[2019-03-06] MEDS ORDERED: METHADONE HCL 10 MG TABLET ONE (02:30)
[2019-03-06] MEDS ORDERED: METHADONE HCL 40 MG DISPERSABLE TABLET ONE (02:31)
[2019-03-06] MEDS: METHADONE 160 MG, METHADONE 20 MG PO SCH (06:37)
[2019-03-06] MEDS: hydrOXYzine PAMOATE 50 MG CAPSULE (FP) PO PRN ×3 (10:13→21:30)
[2019-03-06] MEDS: NICOTINE 21 MG/24 HOURS TOPICAL PATCH TD SCH (10:13)
[2019-03-06] MEDS: SERTRALINE HCL 50 MG TABLET (FP) PO SCH (10:13)
[2019-03-06] MEDS: QUEtiapine FUMARATE 50 MG TABLET PO SCH ×2 (10:13→21:29)
[2019-03-06] MEDS: PRENATAL VITAMINS W/ FOLIC ACID TABLET (FP) PO SCH (10:13)
[2019-03-06] MEDS: NICOTINE POLACRILEX 4 MG GUM BUC PRN ×3 (10:15→21:30)
[2019-03-06] MEDS: THIAMINE HCL 100 MG TABLET (FP) PO SCH (21:29)
[2019-03-06] MEDS: MELATONIN 5 MG TABLETS PO PRN (21:30)
[2019-03-06] MEDS: traZODone HCL 50 MG TABLET (FP) PO SCH (21:30)
[2019-03-07] MEDS ORDERED: METHADONE HCL 40 MG DISPERSABLE TABLET ONE (04:06)
[2019-03-07] MEDS ORDERED: METHADONE HCL 10 MG TABLET ONE (04:06)
[2019-03-07] MEDS: METHADONE 160 MG, METHADONE 20 MG PO SCH (05:54)
[2019-03-07] MEDS: PRENATAL VITAMINS W/ FOLIC ACID TABLET (FP) PO SCH (10:22)
[2019-03-07] MEDS: SERTRALINE HCL 50 MG TABLET (FP) PO SCH (10:22)
[2019-03-07] MEDS: QUEtiapine FUMARATE 50 MG TABLET PO SCH ×2 (10:22→21:53)
[2019-03-07] MEDS: NICOTINE 21 MG/24 HOURS TOPICAL PATCH TD SCH (10:22)
[2019-03-07] MEDS: hydrOXYzine PAMOATE 50 MG CAPSULE (FP) PO PRN ×3 (10:23→21:55)
[2019-03-07] MEDS: NICOTINE POLACRILEX 4 MG GUM BUC PRN ×2 (10:23→21:55)
[2019-03-07] MEDS: THIAMINE HCL 100 MG TABLET (FP) PO SCH (21:53)
[2019-03-07] MEDS: traZODone HCL 50 MG TABLET (FP) PO SCH (21:53)
[2019-03-07] MEDS: MELATONIN 5 MG TABLETS PO PRN (21:55)
[2019-03-07] MEDS: IBUPROFEN 400 MG TABLET (FP) PO PRN (21:55)
[2019-03-08] MEDS ORDERED: METHADONE HCL 40 MG DISPERSABLE TABLET ONE (05:57)
[2019-03-08] MEDS ORDERED: METHADONE HCL 10 MG TABLET ONE (05:57)
[2019-03-08] MEDS: METHADONE 160 MG, METHADONE 20 MG PO SCH (05:57)
[2019-03-08] MEDS: NICOTINE 21 MG/24 HOURS TOPICAL PATCH TD SCH (10:23)
[2019-03-08] MEDS: SERTRALINE HCL 50 MG TABLET (FP) PO SCH (10:23)
[2019-03-08] MEDS: QUEtiapine FUMARATE 50 MG TABLET PO SCH ×2 (10:23→21:30)
[2019-03-08] MEDS: PRENATAL VITAMINS W/ FOLIC ACID TABLET (FP) PO SCH (10:23)
[2019-03-08] MEDS: NICOTINE POLACRILEX 4 MG GUM BUC PRN ×2 (10:24→15:15)
[2019-03-08] MEDS: hydrOXYzine PAMOATE 50 MG CAPSULE (FP) PO PRN ×3 (10:24→21:31)
[2019-03-08] MEDS: THIAMINE HCL 100 MG TABLET (FP) PO SCH (21:30)
[2019-03-08] MEDS: traZODone HCL 50 MG TABLET (FP) PO SCH (21:30)
[2019-03-08] MEDS: MELATONIN 5 MG TABLETS PO PRN (21:30)
[2019-03-09] MEDS ORDERED: METHADONE HCL 10 MG TABLET ONE (04:36)
[2019-03-09] MEDS ORDERED: METHADONE HCL 40 MG DISPERSABLE TABLET ONE (04:37)
[2019-03-09] MEDS: METHADONE 160 MG, METHADONE 20 MG PO SCH (06:05)
[2019-03-09] MEDS: SERTRALINE HCL 50 MG TABLET (FP) PO SCH (10:18)
[2019-03-09] MEDS: QUEtiapine FUMARATE 50 MG TABLET PO SCH ×2 (10:19→21:29)
[2019-03-09] MEDS: PRENATAL VITAMINS W/ FOLIC ACID TABLET (FP) PO SCH (10:19)
[2019-03-09] MEDS: NICOTINE 21 MG/24 HOURS TOPICAL PATCH TD SCH (10:19)
[2019-03-09] MEDS: hydrOXYzine PAMOATE 50 MG CAPSULE (FP) PO PRN ×3 (10:21→21:29)
[2019-03-09] MEDS: NICOTINE POLACRILEX 4 MG GUM BUC PRN ×2 (10:21→21:30)
[2019-03-09] MEDS: traZODone HCL 50 MG TABLET (FP) PO SCH (21:29)
[2019-03-09] MEDS: MELATONIN 5 MG TABLETS PO PRN (21:29)
[2019-03-09] MEDS: THIAMINE HCL 100 MG TABLET (FP) PO SCH (21:30)
[2019-03-09] MEDS: IBUPROFEN 400 MG TABLET (FP) PO PRN (21:30)
[2019-03-10] MEDS ORDERED: METHADONE HCL 40 MG DISPERSABLE TABLET ONE (02:56)
[2019-03-10] MEDS ORDERED: METHADONE HCL 10 MG TABLET ONE (02:56)
[2019-03-10] MEDS: METHADONE 160 MG, METHADONE 20 MG PO SCH (06:06)
[2019-03-10] MEDS: SERTRALINE HCL 50 MG TABLET (FP) PO SCH (10:14)
[2019-03-10] MEDS: QUEtiapine FUMARATE 50 MG TABLET PO SCH ×2 (10:14→21:45)
[2019-03-10] MEDS: PRENATAL VITAMINS W/ FOLIC ACID TABLET (FP) PO SCH (10:14)
[2019-03-10] MEDS: hydrOXYzine PAMOATE 50 MG CAPSULE (FP) PO PRN ×3 (10:16→21:45)
[2019-03-10] MEDS: NICOTINE POLACRILEX 4 MG GUM BUC PRN ×2 (10:16→21:46)
[2019-03-10] MEDS: NICOTINE 21 MG/24 HOURS TOPICAL PATCH TD SCH (10:16)
[2019-03-10] MEDS: traZODone HCL 50 MG TABLET (FP) PO SCH (21:45)
[2019-03-10] MEDS: THIAMINE HCL 100 MG TABLET (FP) PO SCH (21:45)
[2019-03-10] MEDS: MELATONIN 5 MG TABLETS PO PRN (21:45)
[2019-03-11] MEDS ORDERED: METHADONE HCL 40 MG DISPERSABLE TABLET ONE (04:48)
[2019-03-11] MEDS ORDERED: METHADONE HCL 10 MG TABLET ONE (04:48)
[2019-03-11] MEDS: METHADONE 160 MG, METHADONE 20 MG PO SCH (06:16)
[2019-03-11] MEDS: NICOTINE 21 MG/24 HOURS TOPICAL PATCH TD SCH (10:52)
[2019-03-11] MEDS: PRENATAL VITAMINS W/ FOLIC ACID TABLET (FP) PO SCH (10:53)
[2019-03-11] MEDS: SERTRALINE HCL 50 MG TABLET (FP) PO SCH (10:53)
[2019-03-11] MEDS: QUEtiapine FUMARATE 50 MG TABLET PO SCH ×2 (10:53→21:31)
[2019-03-11] MEDS: hydrOXYzine PAMOATE 50 MG CAPSULE (FP) PO PRN ×3 (10:55→21:32)
[2019-03-11] MEDS: NICOTINE POLACRILEX 4 MG GUM BUC PRN ×3 (10:57→21:32)
[2019-03-11] MEDS: THIAMINE HCL 100 MG TABLET (FP) PO SCH (21:31)
[2019-03-11] MEDS: traZODone HCL 50 MG TABLET (FP) PO SCH (21:31)
[2019-03-11] MEDS: MELATONIN 5 MG TABLETS PO PRN (21:32)
[2019-03-12] MEDS ORDERED: METHADONE HCL 10 MG TABLET ONE (05:47)
[2019-03-12] MEDS ORDERED: METHADONE HCL 40 MG DISPERSABLE TABLET ONE (05:47)
[2019-03-12] MEDS: METHADONE 160 MG, METHADONE 20 MG PO SCH (06:07)
[2019-03-12] MEDS: PRENATAL VITAMINS W/ FOLIC ACID TABLET (FP) PO SCH (10:18)
[2019-03-12] MEDS: SERTRALINE HCL 50 MG TABLET (FP) PO SCH (10:18)
[2019-03-12] MEDS: NICOTINE 21 MG/24 HOURS TOPICAL PATCH TD SCH (10:18)
[2019-03-12] MEDS: QUEtiapine FUMARATE 50 MG TABLET PO SCH ×2 (10:18→21:39)
[2019-03-12] MEDS: hydrOXYzine PAMOATE 50 MG CAPSULE (FP) PO PRN ×3 (10:19→21:39)
[2019-03-12] MEDS: NICOTINE POLACRILEX 4 MG GUM BUC PRN ×2 (10:19→21:39)
[2019-03-12] MEDS: THIAMINE HCL 100 MG TABLET (FP) PO SCH (21:39)
[2019-03-12] MEDS: MELATONIN 5 MG TABLETS PO PRN (21:39)
[2019-03-12] MEDS: traZODone HCL 50 MG TABLET (FP) PO SCH (21:39)
[2019-03-13] MEDS ORDERED: METHADONE HCL 10 MG TABLET ONE (05:57)
[2019-03-13] MEDS ORDERED: METHADONE HCL 40 MG DISPERSABLE TABLET ONE (05:58)
[2019-03-13] MEDS: METHADONE 160 MG, METHADONE 20 MG PO SCH (06:31)
[2019-03-13 07:55] VITALS: PULSE 75
[2019-03-13] MEDS: PRENATAL VITAMINS W/ FOLIC ACID TABLET (FP) PO SCH (10:32)
[2019-03-13] MEDS: NICOTINE 21 MG/24 HOURS TOPICAL PATCH TD SCH (10:32)
[2019-03-13] MEDS: SERTRALINE HCL 50 MG TABLET (FP) PO SCH (10:32)
[2019-03-13] MEDS: QUEtiapine FUMARATE 50 MG TABLET PO SCH ×2 (10:32→21:36)
[2019-03-13] MEDS: NICOTINE POLACRILEX 4 MG GUM BUC PRN ×2 (10:33→21:37)
[2019-03-13] MEDS: hydrOXYzine PAMOATE 50 MG CAPSULE (FP) PO PRN (10:34)
--- NOTE | 2019-03-13 13:59 | PN ---
[facility] Progress Note Note: Patient is scheduled for discharge tomorrow. Scripts for medications(Zoloft 100 mg/day, Seroquel 50 mg/bid, Trazadone 50 mg/hs0 will be electronically transmitted to [facility] at [address] [place] [address]
[2019-03-13] MEDS: traZODone HCL 50 MG TABLET (FP) PO SCH (21:35)
[2019-03-13] MEDS: THIAMINE HCL 100 MG TABLET (FP) PO SCH (21:35)
[2019-03-14] MEDS ORDERED: METHADONE HCL 40 MG DISPERSABLE TABLET ONE (06:08)
[2019-03-14] MEDS ORDERED: METHADONE HCL 10 MG TABLET ONE (06:08)
[2019-03-14] MEDS: METHADONE 160 MG, METHADONE 20 MG PO SCH (06:10)
[2019-03-14 06:32] VITALS: BP 144/87; TEMP 98.5
[2019-03-14] MEDS: SERTRALINE HCL 50 MG TABLET (FP) PO SCH (09:23)
[2019-03-14] MEDS: PRENATAL VITAMINS W/ FOLIC ACID TABLET (FP) PO SCH (09:23)
[2019-03-14] MEDS: QUEtiapine FUMARATE 50 MG TABLET PO SCH (09:24)
[2019-03-14] MEDS: NICOTINE POLACRILEX 4 MG GUM BUC PRN (09:25)
[2019-03-14] MEDS: NICOTINE 21 MG/24 HOURS TOPICAL PATCH TD SCH (09:43)
--- NOTE | 2019-03-14 10:43 | PN ---
[facility] Progress Note (SOAP) Subjective: PT COMPLETED REHAB AND DISCHARGED TODAY. PT [facility] ON [address] [place] [address] FOR CD AFTERCARE. PT REPORTS HE HAS A PCP, DR. STILES AT [facility]. PT IS ALERT O X 3. DENIES S/H/I. Objective: 03/14/19 10:47 Vital Signs - 24 hr 03/14/19 03/14/19 03/14/19 00:30 03:30 06:31 Temperature 98.5 F Pulse Rate 75 Respiratory 18 18 16 Rate Blood Pressure 144/87 Assessment: 03/14/19 10:47 NAD MEDICALLY STABLE Plan: D/C PT TODAY FOLLOW UP WITH CD AFTERCARE RECOMMENDED. FOLLOW UP WITH PCP FOR MEDICAL MANAGEMENT WITHIN 1-2 WEEKS AFTER DISCHARGE.
== END 2019-03-14 09:45 | disposition home or self-care (01) | DRG 772 ==
LOC: YASAS 12:39 → Y5N 12:40
PROVIDERS: ADMIT Neuromusculoskeletal Medicine & OMM; ATTEND Neuromusculoskeletal Medicine & OMM
PROC: HZ42ZZZ Group Counseling for Substance Abuse Treatment, Cognitive-Behavioral (ICD-10-PCS; principal; 2019-02-28)
DX: F10.20 Alcohol dependence, uncomplicated (principal); F11.20 Opioid dependence, uncomplicated; F13.20 Sedative, hypnotic or anxiolytic dependence, uncomplicated; F12.20 Cannabis dependence, uncomplicated; F25.9 Schizoaffective disorder, unspecified; F19.24 Other psychoactive substance dependence with psychoactive substance-induced mood disorder; B18.2 Chronic viral hepatitis C; G47.00 Insomnia, unspecified; Z86.69 Personal history of other diseases of the nervous system and sense organs